=== PATIENT | male | born 1940 | race Hispanic/Latino ===

== ENCOUNTER 2017-11-18 12:02 | Inpatient (IN) | payer MEDICARE, OTHER ==
[2017-11-18 12:18] VITALS: BMI 34.0
--- NOTE | 2017-11-18 12:20 | ED PDOC ---
Arrival/HPI - General Time Seen by Provider: 11/18/17 12:15 Historian: Patient - History of Present Illness Narrative History of Present Illness (Text): 11/18/17 12:15 77yo male with Past medical history significant for hypertension, NIDDM, COPD, biba from his PMD's office for one month history of diarrhea, brownish productive cough, JAY and generalized weakness. States he was treated for Pneumonia and then he started having diarrhea s/p. JAY started recently. One episode of diarrhea today. Denies fever, chills, abdominal pain, chest pain, palpitation, diaphoresis, orthopnea, LE edema, calf pain, any other [id number]. Notes the he was told a week ago after chest xray that he have CHF. Past Medical History - Provider Review Nursing Documentation Reviewed: Yes - Pulmonary Hx Respiratory Disorders: (REMAINS CONGESTED,PNEUMONIA) - HEENT Hx HEENT Disorder: (READING,TONSILLECTOMY) - Musculoskeletal/Rheumatological Hx Falls: No - Psychiatric Hx Depression: No Hx Emotional Abuse: No Hx Physical Abuse: No Hx Substance Use: No - Anesthesia Hx Anesthesia: Yes - Suicidal Assessment Feels Threatened In Home Enviroment: No Family/Social History - Physician Review Nursing Documentation Reviewed: Yes Family/Social History: Unknown Family HX Smoking Status: Former Smoker Hx Alcohol Use: No Hx Substance Use: No Hx Substance Use Treatment: No Allergies/Home Meds Allergies/Adverse Reactions: Allergies atorvastatin Allergy (Verified 11/18/17 12:24) RASH Penicillins Allergy (Verified 11/18/17 12:24) PAIN procaine Allergy (Verified 11/18/17 12:24) RASH propoxyphene Allergy (Verified 11/18/17 12:24) RASH darvon Allergy (Severe, Uncoded 06/30/12 11:20) PAIN palpitations novacaine Allergy (Severe, Uncoded 06/30/12 11:18) PAIN palpitations Home Medications: Home Meds Medication Instructions Recorded Confirmed Aspirin 81 mg PO DAILY 06/30/12 11/18/17 Bethanechol Chloride [Bethanechol] 25 mg PO BID 06/30/12 11/18/17 Carvedilol [Coreg] 12.5 mg PO BID 06/30/12 11/18/17 Doxercalciferol [Hectorol] 2.5 mcg PO DAILY 06/30/12 11/18/17 Eplerenone [Inspra] 25 mg PO DAILY 06/30/12 11/18/17 Ezetimibe [Zetia] 10 mg PO DAILY 06/30/12 11/18/17 Finasteride 5 mg PO DAILY 06/30/12 11/18/17 Furosemide 20 mg PO BID 06/30/12 11/18/17 Glimepiride 2 mg PO BID 06/30/12 11/18/17 Nisoldipine [Sular] 25.5 mg PO DAILY 06/30/12 11/18/17 Sildenafil Citrate [Viagra] 100 mg PO PRN PRN 06/30/12 11/18/17 Tamsulosin [Flomax] 0.4 mg PO BID 06/30/12 11/18/17 Acarbose [Precose] 50 mg PO TID 11/18/17 11/18/17 Chlorthalidone 0.5 tab PO MWF 11/18/17 11/18/17 Colchicine 0.6 PO DAILY PRN 11/18/17 Ergocalciferol (Vitamin D2) PO MON 11/18/17 [Vitamin D2] Icosapent Ethyl [Vascepa] 1 gm PO BID 11/18/17 11/18/17 Irbesartan [Avapro] 300 mg PO MWF 11/18/17 11/18/17 Linagliptin [Tradjenta] 5 mg PO DAILY 11/18/17 11/18/17 Omeprazole 40 DAILY 11/18/17 Repaglinide [Prandin] 0.5 mg PO DAILY 11/18/17 11/18/17 Uloric 80 PRN PRN 11/18/17 Review of Systems - Physician Review All systems were reviewed & negative as marked: Yes - Review of Systems Constitutional: Fatigue Eyes: Normal ENT: Normal Respiratory: Cough, Sputum Cardiovascular: Normal Gastrointestinal: Diarrhea. absent: Abdominal Pain, Constipation, Nausea, Vomiting, Hematochezia, Hematemesis Genitourinary Male: Normal Musculoskeletal: Normal Skin: Normal Neurological: Normal Endocrine: Normal Hemo/Lymphatic: Normal Psychiatric: Normal Physical Exam Vital Signs Reviewed: Yes Vital Signs Temp Pulse Resp BP Pulse Ox 11/18/17 13:58 110 H 18 139/64 96 11/18/17 13:48 114 H 139/64 11/18/17 12:17 98.0 F 98 H 18 142/90 96 Temperature: Afebrile Blood Pressure: Normal Pulse: Regular Respiratory Rate: Normal Appearance: Positive for: Well-Appearing, Non-Toxic, Comfortable, Other ( [place] obese) Pain Distress: None Mental Status: Positive for: Alert and Oriented X 3 - Systems Exam Head: Present: Atraumatic, Normocephalic Pupils: Present: PERRL Extroacular Muscles: Present: EOMI Conjunctiva: Present: Normal Mouth: Present: Moist Mucous Membranes Neck: Present: Normal Range of Motion Respiratory/Chest: Present: Clear to Auscultation, Good Air Exchange, Rhonchi ( Scattered). No: Respiratory Distress, Accessory Muscle Use, Wheezes, Decreased Breath Sounds, Rales, Retracting Cardiovascular: Present: Regular Rate and Rhythm, Normal S1, S2. No: Murmurs Abdomen: Present: Distention (Distention secondary to body habitus), Normal Bowel Sounds. No: Tenderness, Peritoneal Signs, Rebound, Guarding, McBurney's Point Tender, Rovsing's Sign Present Back: Present: Normal Inspection Upper Extremity: Present: Normal Inspection. No: Cyanosis, Edema Lower Extremity: Present: Normal Inspection. No: Edema Neurological: Present: GCS=15, CN II-XII Intact, Speech Normal Skin: Present: Warm, Dry, Normal Color. No: Rashes Psychiatric: Present: Alert, Oriented x 3, Normal Insight, Normal Concentration Medical Decision Making ED Course and Treatment: 11/18/17 18:22 Pt presented for stated history. He was tachy, but not hypoxic. He was not in respiratory distress. Small leukocytosis was noted. Hypokalemia (3.0) and BNP >8000 was noted. Potassium was repleted. Afib with RVR. Couldn't find old EKG to compare. PT was given 5mg of lopressor. CXR RML infiltrate/PNE. Pt was on oral antibiotic and failed outpt therapy. LEvaquin was started for Pneumonia C. Diff toxin ordered and pending. Case was DW Dr. Petty and she accepted pt into her service. - Lab Interpretations Lab Results: 11/18/17 12:49 11/18/17 12:49 Lab Results 11/18/17 12:49: Sodium 138, Chloride 103, Potassium 3.0 L, Carbon Dioxide 27, Anion Gap 11, BUN 20, Creatinine 1.4, Est GFR ( Amer) 60, Est GFR (Non- Af Amer) 49, Random Glucose 188 H, Calcium 8.5, Total Bilirubin 0.5, AST 18, ALT 27, Alkaline Phosphatase 100, Lactate Dehydrogenase 469, Total Creatine Kinase 130, Troponin I 0.04, NT-Pro-B Natriuret Pep 8660 H, Total Protein 6.1, Albumin 3.1, Globulin 3.0, Albumin/Globulin Ratio 1.0 L 11/18/17 12:49: pO2 42, VBG pH 7.38, VBG pCO2 46.0, VBG HCO3 27.2, VBG Total CO2 28.6 H, VBG O2 Sat (Calc) 79.1 H, VBG Base Excess 1.5, VBG Potassium 2.9 L, Sodium 138.0, Chloride 105.0, Glucose 193 H, Lactate 1.3, FiO2 21.0, Venous Blood Potassium 2.9 L 11/18/17 12:49: PT 14.0 H, INR 1.27 H, APTT 29.9 11/18/17 12:49: WBC 11.7 H, RBC 3.55, Hgb 10.2 L, Hct 29.4 L, MCV 82.8, MCH 28.7 , MCHC 34.7, RDW 13.5, Plt Count 308, MPV 10.6, Gran % 82.4 H, Lymph % (Auto) 7.5 L, Mower % (Auto) 8.4 H, Eos % (Auto) 1.6, Baso % (Auto) 0.1, Gran # 9.63 H, Lymph # 0.9 L, Mower # 1.0 H, Eos # 0.2, Baso # 0.01 - RAD Interpretation Radiology Orders: 11/18/17 12:40 CHEST PORTABLE [RAD] Stat - Medication Orders Current Medication Orders: Acetaminophen (Tylenol 325mg Tab) 650 mg PO Q6H PRN PRN Reason: Fever >100.4 F Albuterol/Ipratropium (Duoneb 3 Mg/0.5 Mg (3 Ml) Ud) 3 ml IH Q2H PRN PRN Reason: Shortness of Breath Albuterol/Ipratropium (Duoneb 3 Mg/0.5 Mg (3 Ml) Ud) 3 ml IH [id number] [facility] Aspirin (Ecotrin) 81 mg PO DAILY [facility] Bethanechol Chloride (Urecholine) 25 mg PO TID [facility] Last Admin: 11/18/17 18:15 Dose: 25 mg Carvedilol (Coreg) 12.5 mg PO BID [facility] Doxercalciferol (Hectorol) 2.5 mcg PO DAILY [facility] Finasteride (Proscar) 5 mg PO DAILY [facility] Glimepiride (Amaryl) 2 mg PO BID [facility] Doxycycline Hyclate 100 mg/ (Sodium Chloride) 100 mls @ 100 mls/hr IVPB Q12 [facility] PRN Reason: Protocol Aztreonam (Azactam 1 Gm) 100 mls @ 100 mls/hr IV Q12 [facility] PRN Reason: Protocol Stop: 11/27/17 22:01 Insulin Human Regular (Humulin R Med) 0 units SC ACHS [facility] PRN Reason: Protocol Ondansetron HCl (Zofran Inj) 4 mg IVP Q6H PRN PRN Reason: Nausea/Vomiting Pantoprazole Sodium (Protonix Ec Tab) 40 mg PO 0630 [facility] Tamsulosin HCl (Flomax) 0.4 mg PO BID [facility] Valsartan (Diovan) 320 mg PO DAILY [facility] Vancomycin HCl (Vancocin 25 Mg/Ml (Oral Use)) 250 mg PO QID [facility] PRN Reason: Protocol Stop: 12/02/17 22:01 Discontinued Medications Albuterol/Ipratropium (Duoneb 3 Mg/0.5 Mg (3 Ml) Ud) 3 ml IH STAT STA Stop: 11/18/17 13:29 Last Admin: 11/18/17 13:48 Dose: 3 ml Levofloxacin/Dextrose (Levaquin 500mg) 500 mg in 100 mls @ 100 mls/hr IVPB STAT [facility] PRN Reason: Protocol Stop: 11/18/17 14:04 Last Admin: 11/18/17 13:34 Dose: 100 mls/hr eMAR Start Stop Document 11/18/17 13:34 HI (Rec: 11/18/17 13:34 HI [id number]) Intravenous Solution Start Date 11/18/17 Start Time 13:34 Potassium Chloride (Potassium Chloride 20 Meq/100 Ml) 20 meq in 100 mls @ 50 mls/hr IVPB Q2H STA Stop: 11/18/17 15:13 Last Admin: 11/18/17 13:34 Dose: 50 mls/hr eMAR Start Stop Document 11/18/17 13:34 HI (Rec: 11/18/17 13:34 [id number]) Intravenous Solution Start Date 11/18/17 Start Time 13:34 Metoprolol Tartrate (Lopressor) 5 mg IVP STAT STA Stop: 11/18/17 13:29 Last Admin: 11/18/17 13:48 Dose: 5 mg IVP Administration Document 11/18/17 13:48 HI (Rec: 11/18/17 13:48 [id number]) Charges for Administration # of IVP Administrations 1 MAR Pulse and Blood Pressure Document 11/18/17 13:48 HI (Rec: 11/18/17 13:48 [id number]) Pulse Pulse Rate (60-90) 114 Blood Pressure Blood Pressure (100/60-150/90) 139/64 Disposition/Present on Arrival - Present on Arrival Any Indicators Present on Arrival: No History of DVT/PE: No History of Uncontrolled Diabetes: No Urinary Catheter: No History of Decub. Ulcer: No History Surgical Site Infection Following: None - Disposition Have Diagnosis and Disposition been Completed?: Yes Diagnosis: Pneumonia, Afib, Hypokalemia, CHF (congestive heart failure) Disposition: HOSPITALIZED Disposition Time: 17:00 Patient Problems: Current Active Problems Problem Status Onset Afib Acute CHF (congestive heart failure) Acute Hypokalemia Acute Pneumonia Acute Condition: FAIR
[2017-11-18 13:02] LABS: VENOUS BLOOD GAS BASE EXCESS 1.5 mmol/L (0.0-2.0); VENOUS BLOOD PH 7.38 (7.32-7.43)
[2017-11-18] MEDS ORDERED: levoFLOXacin 500 mg in D5W 500 MG/100 ML BAG IVPB STA (13:05)
[2017-11-18 13:13] LABS: BILIRUBIN,TOTAL 0.5 mg/dL (0.2-1.3); CALCIUM 8.5 mg/dL (8.4-10.5); TOTAL PROTEIN 6.1 g/dL (5.8-8.3)
[2017-11-18 13:14] LABS: BASO # 0.01 K/mm3 (0.0-2.0); BASO % 0.1 % (0.0-3.0); EOS # 0.2 (0.0-0.7); EOS % 1.6 % (1.5-5.0); GRAN # 9.63 (1.4-6.5); GRAN % 82.4 % (50.0-68.0); HEMATOCRIT 29.4 % (42.0-52.0); LYMPH # 0.9 (1.2-3.4); LYMPH % 7.5 % (22.0-35.0); MEAN CELL VOLUME 82.8 fl (80.0-105.0); MEAN CORPUSCULAR HEMOGLOBIN 28.7 pg (25.0-35.0); MEAN CORPUSCULAR HGB CONC 34.7 g/dl (31.0-37.0); MEAN PLATELET VOLUME 10.6 fl (7.0-11.0); MONO % 8.4 % (1.0-6.0); RED CELL DISTRIBUTION WIDTH 13.5 % (11.5-14.5); WHITE BLOOD COUNT 11.7 10^3/ul (4.5-11.0)
[2017-11-18 13:26] LABS: TROPONIN I 0.04 ng/mL
[2017-11-18 13:27] LABS: INR 1.27 (0.93-1.08); PARTIAL THROMBOPLASTIN TIME 29.9 Seconds (25.1-36.5)
[2017-11-18] MEDS ORDERED: Albuterol-Ipratrop 3 mg / 0.5 (3 ml) UD IH STA (13:28)
[2017-11-18] MEDS ORDERED: Metoprolol 1 mg/ml Inj IVP STA (13:28)
--- NOTE | 2017-11-18 14:30 | RAD ---
HISTORY: cough COMPARISON: Chest x-ray performed 07/09/12 TECHNIQUE: Chest, one view. FINDINGS: LUNGS: Extensive patchy opacities throughout the right peri thorax with sparing of the right lung apex. Appearance concerning for pneumonia. Recommend follow-up upon completion of treatment of acute symptoms in order to ensure complete resolution and exclude possibility of underlying neoplasm. Please note that chest x-ray has limited sensitivity for the detection of pulmonary masses. PLEURA: No significant pleural effusion identified. No definite pneumothorax . CARDIOVASCULAR: Partially obscured right heart border. Heart size appears top normal. OSSEOUS STRUCTURES: Degenerative changes. VISUALIZED UPPER ABDOMEN: Unremarkable. OTHER FINDINGS: None. IMPRESSION: Extensive patchy opacities throughout the right peri thorax with sparing of the right lung apex. Appearance concerning for pneumonia. Recommend follow-up upon completion of treatment of acute symptoms in order to ensure complete resolution and exclude possibility of underlying neoplasm.
[2017-11-18] MEDS ORDERED: Non Formulary Medication (Aspirin [Aspirin] 81 MG) PO SCH (17:30)
[2017-11-18] MEDS ORDERED: Albuterol-Ipratrop 3 mg / 0.5 (3 ml) UD IH PRN (17:30)
[2017-11-18] MEDS ORDERED: DOXERCALCIFEROL 2.5 MCG PO SCH (17:30)
[2017-11-18] MEDS ORDERED: Non Formulary Medication (Valsartan [Diovan] 320 MG) PO SCH (17:30)
[2017-11-18] MEDS ORDERED: FINASTERIDE 5 MG PO SCH (17:30)
[2017-11-18] MEDS ORDERED: Aztreonam 1 Gm in NS 100mL 100 ML IVPB SCH (17:45)
[2017-11-18] MEDS ORDERED: GLIMEPIRIDE 2 MG PO SCH (18:00)
[2017-11-18] MEDS ORDERED: BETHANECHOL CHLORIDE 25 MG PO SCH (18:00)
[2017-11-18 19:23] LABS: URINE BILIRUBIN NEGATIVE (NEGATIVE); URINE BLOOD NEGATIVE (NEGATIVE); URINE GLUCOSE (UA) NEGATIVE (NEGATIVE); URINE KETONE NEGATIVE (NEGATIVE); URINE LEUKOCYTE ESTERASE NEGATIVE Leu/uL (NEGATIVE); URINE PROTEIN TRACE mg/dL (<30 mg/dL); URINE UROBILINOGEN 0.2 E.U./dL (<1 E.U./dL)
[2017-11-18 19:26] LABS: URINE APPEARANCE CLEAR (CLEAR); URINE COLOR YELLOW (YELLOW)
[2017-11-18 19:28] LABS: URINE EPITHELIAL CELLS 0 - 2 /hpf (0-5); URINE RBC 0 - 2 /hpf (0-2); URINE WBC 0 - 2 /hpf (0-6)
[2017-11-18] MEDS: Albuterol-Ipratrop 3 mg / 0.5 (3 ml) UD IH SCH (19:52)
[2017-11-18] MEDS: Aztreonam 1 Gm in NS 100mL 100 ML IV SCH (21:02)
[2017-11-18] MEDS: Vancomycin 25 MG/ML PO SCH (22:05)
[2017-11-18] MEDS: Insulin Reg-MEDIUM-Coverage SC SCH (22:51)
[2017-11-19] MEDS: Albuterol-Ipratrop 3 mg / 0.5 (3 ml) UD IH SCH ×4 (01:54→20:00)
[2017-11-19] MEDS: Pantoprazole 40 mg EC Tab PO SCH (05:38)
[2017-11-19] MEDS: Insulin Reg-MEDIUM-Coverage SC SCH ×3 (07:54→18:00)
[2017-11-19 08:17] LABS: MEAN CELL VOLUME 83.6 fl (80.0-105.0); MEAN CORPUSCULAR HEMOGLOBIN 27.4 pg (25.0-35.0); MEAN CORPUSCULAR HGB CONC 32.8 g/dl (31.0-37.0); MEAN PLATELET VOLUME 10.2 fl (7.0-11.0); RED CELL DISTRIBUTION WIDTH 13.8 % (11.5-14.5); WHITE BLOOD COUNT 10.7 10^3/ul (4.5-11.0)
[2017-11-19 08:26] LABS: ALB/GLOB RATIO 1.1 (1.1-1.8); BILIRUBIN,TOTAL 0.4 mg/dL (0.2-1.3); CALCIUM 8.8 mg/dL (8.4-10.5); POTASSIUM 3.5 mmol/L (3.6-5.0)
[2017-11-19] MEDS ORDERED: Potassium Chloride 20 mEq ER Tab PO ONE (08:54)
[2017-11-19] MEDS: Aztreonam 1 Gm in NS 100mL 100 ML IV SCH ×2 (10:09→22:03)
[2017-11-19] MEDS: Vancomycin 25 MG/ML PO SCH ×4 (10:15→22:04)
[2017-11-19] MEDS: Potassium Chloride 20 mEq ER Tab PO SCH ×2 (10:15→18:05)
--- NOTE | 2017-11-19 10:52 | HP ---
HISTORY OF PRESENT ILLNESS: Patient is 77 years old came to the emergency room because of history of intermittent diarrhea secondary to the antibiotic that was given because he has been coughing for almost a week. Patient states he was treated for pneumonia, and he was given antibiotic unknown to him. He started to have diarrhea that is going on intermittently for almost a month. He complained of having generalized weakness, complained of brownish productive cough, complained of diarrhea with no blood in the stool, complained of generalized weakness. Denies any abdominal pain. No chest pain. No palpitations but have shortness of breath. PAST MEDICAL HISTORY: Significant for: 1. Hypertension. 2. History of COPD. 3. Insulin-dependent diabetes. 4. History of *------*. 5. Mild renal insufficiency. 6. History of melanoma. 7. History of basal cell carcinoma. PAST SURGICAL HISTORY: Significant for skin graft 43 years ago and multiple skin cancer excisions. ALLERGIES: HE IS ALLERGIC TO PENICILLIN, ATORVASTATIN, PROCAINE, DARVON, AND NOVOCAIN. SOCIAL HISTORY: He is an ex-smoker, quit 11 years ago. MEDICATIONS AT HOME: He is on Coreg 12.5 twice a day, Flomax 0.4 b.i.d., Viagra as needed, Sular *------* daily, glimepiride 2 mg twice a day, Lasix 20 mg twice a day, finasteride 5 mg daily, Zetia 10 mg daily, Inspra 25 mg daily, Hectorol and bethanechol. REVIEW OF SYSTEMS: Significant for diarrhea, cough, congestion, and shortness of breath. PHYSICAL EXAMINATION: GENERAL: He is awake, alert, oriented, and communicative. VITAL SIGNS: He is afebrile, pulse 98, respirations 18, and blood pressure 142/90. LUNGS: Bilateral occasional expiratory rhonchi. HEART: S1, S2 audible. ABDOMEN: Soft, nontender, no rebound, obese. No hepatosplenomegaly. NEUROLOGIC: The patient is awake, alert, oriented, able to communicate. LABORATORY DATA: WBC 11.7, hemoglobin 10.2, hematocrit 29.4, platelets of 308. PT 14.0, INR 1.27. Chemistry; sodium 138, potassium 3.0, chloride 103, CO2 of 27, BUN 20, creatinine 1.4, blood sugar of 212, BNP 1660. X-ray of chest shows multifocal extensive patchy opacity throughout the right hemithorax with sparing of right lung apex. ASSESSMENT AND PLAN: 1. Community-acquired pneumonia. 2. Failed outpatient treatment. 3. Non-insulin dependent diabetes. 4. Hypertension. 5. Hyperlipidemia. 6. History of chronic obstructive pulmonary disease. 7. History of cancer of prostate. PLAN: We will start him on nebulizer treatments, start him on doxycycline 100 [address]d., given him Dr. Emeka *------* for consult and monitor his blood sugar. We will reevaluate patient in a.m. Joselito Petty MD
--- NOTE | 2017-11-19 11:33 | CARD ---
APPROVED REPORT EKG Measurement Heart [id number] <Conclusion> Atrial fibrillation with rapid ventricular response Left axis deviation/LAHB IVCD PRWP NSSTW changes
--- NOTE | 2017-11-19 11:37 | CON ---
DATE: 11/19/2017 INDICATION: Shortness of breath, cough, sputum production, pneumonia. HISTORY OF PRESENT ILLNESS: This is a 77-year-old man known to me, admitted yesterday through the emergency room when he presented with shortness of breath, cough, sputum production, generalized weakness. He had been treated on outpatient basis for possible pneumonia. He was given antibiotics. He developed diarrhea. He became weaker. He came to the emergency room and was admitted. He was found to have a right lower lobe pneumonia. He was admitted to room 565. He is sánchez cultured. He is started on antibiotics. This morning, he feels better. There is less shortness of breath. He still has cough, and he still feels weak. There was no chest pain, orthopnea, PND, syncope, dizziness, vertigo, palpitations, claudication, abdominal pain, nausea, vomiting, diarrhea, constipation, melena. PAST MEDICAL HISTORY: Complex. He has had a prior remote pneumonia. He has diabetes, hypertension, COPD. He is a former smoker. Hyperlipidemia, BPH, chronic kidney disease, and gout. There is no history of rheumatic fever, myocardial infarction, angina, arrhythmia, stroke, TIA. MEDICATIONS AT THE TIME OF ADMISSION: Includes aspirin, bethanechol, Coreg, Hectorol, Inspra, Zetia, finasteride, Lasix, glimepiride, Sular, Flomax, Precose, chlorthalidone, Avapro, Tradjenta, omeprazole, Prandin, Uloric. ALLERGIES: HE NOTES ALLERGIES TO SEVERAL MEDICATIONS INCLUDING LIPITOR, PENICILLIN, PROCAINE, PROPOXYPHENE, NOVOCAINE. SOCIAL HISTORY: He lives at home. He is ambulatory, but limited. He is a former smoker. He does not drink alcohol significantly. FAMILY HISTORY: Noncontributory. REVIEW OF SYSTEMS: A 10-point review of systems is otherwise unremarkable except as noted above. PHYSICAL EXAMINATION: GENERAL: He is a well-developed male, lying in bed, on 5R, in no acute distress. VITAL SIGNS: Notable for pulse of 80. He is afebrile. Blood pressure elevated at 188/82, respirations 18-22, O2 sat 94-96% on nasal cannula and room air. HEENT: Reveals no neck vein distention, thyromegaly, or carotid bruits. Mucous membranes moist. Conjunctivae pink. NECK: Supple. LUNGS: Lung north, rhonchi mostly on the right side. No wheezing. HEART: Reveals normal first and second heart sounds. There is a soft systolic murmur along the left sternal border. ABDOMEN: Soft. Bowel sounds present. No mass, organomegaly, tenderness, rebound, guarding, CVA tenderness, or palpable abdominal aortic aneurysm. EXTREMITIES: Reveal no cyanosis, clubbing, or edema. NEUROLOGIC: He is awake, alert, and oriented. PSYCHIATRIC: Normalized mood and affect. SKIN: Warm and dry. No rash or cellulitis. LABORATORY AND IMAGING: A chest x-ray revealed extensive patchy opacities throughout the right hemithorax with sparing of the right lung apex. Appearance concerning for pneumonia. EKG demonstrates atrial fibrillation with left anterior hemiblock, intraventricular conduction delay, poor R-wave progression, nonspecific ST-wave changes. White count 10,700, hemoglobin 9.5, hematocrit 29, platelet count 296,000. PT 14, INR 1.27, PTT 29.9. Blood gas as noted. Electrolytes: BUN, creatinine, blood sugars noted. Creatinine 1.4, potassium 3.5. LFTs unremarkable. CK 130, troponin 0.04. BNP 8660. Urinalysis is noted. IMPRESSION: Mason Davila is a 77-year-old man admitted with 1-month history of symptoms, found to have a right lung pneumonia with shortness of breath, cough, sputum production, weakness, and diarrhea after a course of antibiotics. He is also in atrial fibrillation which may be a new rhythm. At this time, I agree with current plans. He has been cultured. He is getting antibiotics. There was an ID consultation pending. I will review his old records. We will continue his usual medications. Given the presence of atrial fibrillation, he should be considered for anticoagulation. I will begin with Eliquis 5 mg b.i.d. We will check stool for occult blood. I will review his old records. We will get an echocardiogram. We will check thyroid functions. We will continue Coreg 12.5 mg b.i.d. for rate control and hypertension. Other cardiac medications include aspirin, Diovan, Lasix, potassium chloride, and lisinopril, and Zetia will be continued for an hour. We will monitor I's and O's, check stool for occult blood. I will follow along with you. I will make additional recommendations based on his clinical course. Mele Hart MD GM
--- NOTE | 2017-11-19 12:11 | CARD ---
APPROVED REPORT EKG Measurement Heart [id number] <Conclusion> Normal sinus rhythm, new c/w ECG 11/18/17 which showed AF PRWP Left anterior fascicular block Prolonged QT
--- NOTE | 2017-11-19 18:56 | PN ---
DATE: 11/19/2017 SUBJECTIVE: The patient is in bed, no acute distress, nontoxic. PHYSICAL EXAMINATION: VITAL SIGNS: On exam, temperature is 98, blood pressure is 180/80, respiratory rate of 22. HEENT: Unremarkable. NECK: Supple. LUNGS: Have decreased breath sounds. HEART: Normal S1 and S2. ABDOMEN: Soft and nontender. LABORATORY EXAMINATION: Reveals a white count is down to 10,000, hemoglobin of 9, platelets of 296. BUN of 21, creatinine of 1.4, and blood cultures are no growth. ASSESSMENT AND PLAN: This is a 77-year-old male with past medical history significant for prostate cancer, renal disease, diabetes, hypertension with a systemic inflammatory response syndrome, awaiting for final culture results. Currently, the patient is on Azactam, doxycycline, and vancomycin p.o. Pending further workup. We will follow closely with you. Reji Jane MD
--- NOTE | 2017-11-19 21:45 | CP.PCM.PN ---
Subjective - Date & Time of Evaluation Date of Evaluation: 11/19/17 Time of Evaluation: 09:20 - Subjective Subjective: Patient has very poor veins,needs iv access Objective - Vital Signs/Intake and Output Vital Signs (last 24 hours): Temp Pulse Resp BP Pulse Ox 98.3 F 78 20 140/80 90 L 11/19/17 16:00 11/19/17 18:04 11/19/17 16:00 11/19/17 18:04 11/19/17 16:00 Intake and Output: 11/19/17 11/20/17 18:59 06:59 Intake Total 960 Output Total 600 Balance 360 - Medications Medications: Current Medications Acetaminophen (Tylenol 325mg Tab) 650 mg PO Q6H PRN PRN Reason: Fever >100.4 F Albuterol/Ipratropium (Duoneb 3 Mg/0.5 Mg (3 Ml) Ud) 3 ml IH Q2H PRN PRN Reason: Shortness of Breath Albuterol/Ipratropium (Duoneb 3 Mg/0.5 Mg (3 Ml) Ud) 3 ml IH [id number] [facility] Last Admin: 11/19/17 13:17 Dose: 3 ml Amlodipine Besylate (Norvasc) 10 mg PO STAT [facility] Last Admin: 11/19/17 14:32 Dose: 10 mg Amlodipine Besylate (Norvasc) 10 mg PO DAILY [facility] Apixaban (Eliquis) 5 mg PO BID [facility] PRN Reason: Protocol Last Admin: 11/19/17 18:05 Dose: 5 mg Aspirin (Ecotrin) 81 mg PO DAILY [facility] Last Admin: 11/19/17 10:11 Dose: Not Given Aspirin (Aspirin Chewable) 81 mg PO DAILY [facility] Last Admin: 11/19/17 10:07 Dose: 81 mg Bethanechol Chloride (Urecholine) 25 mg PO TID [facility] Last Admin: 11/19/17 18:05 Dose: 25 mg Carvedilol (Coreg) 12.5 mg PO BID [facility] Last Admin: 11/19/17 18:04 Dose: 12.5 mg Doxercalciferol (Hectorol) 2.5 mcg PO DAILY [facility] Last Admin: 11/19/17 10:29 Dose: 2.5 mcg Doxycycline Hyclate (Doryx) 100 mg PO Q12 [facility] Ezetimibe (Zetia) 10 mg PO DAILY [facility] Last Admin: 11/19/17 10:08 Dose: 10 mg Finasteride (Proscar) 5 mg PO DAILY [facility] Last Admin: 11/19/17 10:15 Dose: 5 mg Furosemide (Lasix) 40 mg PO DAILY [facility] Last Admin: 11/19/17 10:15 Dose: 40 mg Glimepiride (Amaryl) 2 mg PO BID [facility] Last Admin: 11/19/17 18:04 Dose: 2 mg Aztreonam (Azactam 1 Gm) 100 mls @ 100 mls/hr IV Q12 [facility] PRN Reason: Protocol Stop: 11/27/17 22:01 Last Admin: 11/19/17 10:09 Dose: 100 mls/hr Insulin Human Regular (Humulin R Med) 0 units SC ACHS [facility] PRN Reason: Protocol Last Admin: 11/19/17 18:00 Dose: Not Given Ondansetron HCl (Zofran Inj) 4 mg IVP Q6H PRN PRN Reason: Nausea/Vomiting Pantoprazole Sodium (Protonix Ec Tab) 40 mg PO 0630 [facility] Last Admin: 11/19/17 05:38 Dose: 40 mg Potassium Chloride (K-Dur 20 Meq Er Tab) 20 meq PO BID [facility] Last Admin: 11/19/17 18:05 Dose: 20 meq Tamsulosin HCl (Flomax) 0.4 mg PO BID [facility] Last Admin: 11/19/17 18:05 Dose: 0.4 mg Valsartan (Diovan) 320 mg PO DAILY [facility] Last Admin: 11/19/17 10:10 Dose: 320 mg Vancomycin HCl (Vancocin 25 Mg/Ml (Oral Use)) 250 mg PO QID [facility] PRN Reason: Protocol Stop: 12/02/17 22:01 Last Admin: 11/19/17 18:00 Dose: 250 mg - Labs Labs: 11/19/17 07:45 11/19/17 07:45 PT 14.0 SECONDS (9.4-12.5) H 11/18/17 12:49 INR 1.27 (0.93-1.08) H 11/18/17 12:49 APTT 29.9 Seconds (25.1-36.5) 11/18/17 12:49 - Constitutional Appears: No Acute Distress Assessment and Plan - Assessment and Plan (Free Text) Assessment: Poor venous access Plan: Hep lock inserted in the L hand. #24 angiocath used.
--- NOTE | 2017-11-19 22:42 | PN ---
DATE: SUBJECTIVE: The patient is 77-year-old, seen and examined, doing well. He states he feels lot better. No nausea, vomiting or diarrhea. Cough has improved. PHYSICAL EXAMINATION: VITAL SIGNS: The patient is afebrile, pulse 75, respiration 20, blood pressure 127/48. LUNGS: Bilateral good airflow. No rhonchi or crackle. HEART: S1, S2, audible. ABDOMEN: Soft, obese, nontender. No rebound or guarding. NEUROLOGIC: The patient is awake, alert, oriented, communicative. LABORATORY DATA: WBC is 10.7, hemoglobin 9.5, hematocrit 29, platelets 296. Chemistry: Sodium 140, potassium 3.5, chloride 105, CO2 27, BUN 21, creatinine 1.4, blood sugar of 145. Blood cultures are negative. Stool for C. diff negative. ASSESSMENT: 1. Multifocal community-acquired pneumonia, failed outpatient treatment. 2. Morbid obesity. 3. Diarrhea induced by erythromycin, negative for Clostridium difficile. 4. History of chronic obstructive pulmonary disease. 5. Insulin-dependent diabetes. 6. Renal insufficiency. PLAN: Currently, the patient is on Azactam since he is ALLERGIC TO PENICILLIN and he is on doxycycline. Continue to monitor his blood sugar, out of bed to chair, followup echocardiogram. We will reevaluate the patient in a.m. Joselito Petty MD
[2017-11-20] MEDS: Albuterol-Ipratrop 3 mg / 0.5 (3 ml) UD IH SCH ×4 (01:20→21:26)
[2017-11-20 07:33] LABS: HEMATOCRIT 30.6 % (42.0-52.0); MEAN CELL VOLUME 83.8 fl (80.0-105.0); MEAN CORPUSCULAR HEMOGLOBIN 27.7 pg (25.0-35.0); MEAN PLATELET VOLUME 10.8 fl (7.0-11.0); RED CELL DISTRIBUTION WIDTH 13.9 % (11.5-14.5); WHITE BLOOD COUNT 12.4 10^3/ul (4.5-11.0)
[2017-11-20 07:43] LABS: BLOOD UREA NITROGEN 21 mg/dL (7-21); CALCIUM 8.6 mg/dL (8.4-10.5); CARBON DIOXIDE 25 mmol/L (21-33); CHLORIDE 105 mmol/L (98-107); GFR AFRICAN-AMERICAN > 60; GLUCOSE,RANDOM 166 mg/dL (70-110); POTASSIUM 3.6 mmol/L (3.6-5.0); SODIUM 139 mmol/L (132-148)
[2017-11-20 07:52] LABS: TROPONIN I 0.03 ng/mL
[2017-11-20] MEDS: Insulin Reg-MEDIUM-Coverage SC SCH ×4 (09:00→22:48)
[2017-11-20] MEDS: Aztreonam 1 Gm in NS 100mL 100 ML IV SCH ×2 (09:19→21:00)
[2017-11-20] MEDS: Potassium Chloride 20 mEq ER Tab PO SCH ×2 (09:23→17:28)
[2017-11-20] MEDS: Vancomycin 25 MG/ML PO SCH ×4 (09:25→21:00)
--- NOTE | 2017-11-20 11:44 | CARD ---
APPROVED REPORT EXAM: Two-dimensional and M-mode echocardiogram with Doppler and color Doppler. INDICATION Dyspnea 2D DIMENSIONS Left Atrium (2D)4.6 (1.6-4.0cm)IVSd1.5 (0.7-1.1cm) LVDd4.9 (3.9-5.9cm)LVOT Diameter2.3 (1.8-2.4cm) PWd1.4 (0.7-1.1cm)LVDs3.3 (2.5-4.0cm) FS (%) 32.6 %LVEF (%)60.6 (>50%) M-Mode DIMENSIONS Aortic Root3.80 (2.2-3.7cm)Aortic Cusp Exc.1.60 (1.5-2.0cm) Aortic Valve AoV Peak Ipogiqcx488.0cm/sAoV VTI48.2cmAO Peak GR.30mmHg LVOT Peak Hsgrworu647.0cm/sLVOT VTI27.00cmAO Mean GR.13mmHg DARWIN (VMAX)1.95zy6OYU (VTI)2.84cg9JE P 1/2 Jrme232rr Mitral Valve MV E Cazgnyda025.0cm/sMV A Rxbuvcna921.0cm/sE/A ratio1.0 TDI Lateral E' Peak V7.12cm/sMedial E' Peak V6.04cm/sE/Lateral E'17.6 E/Medial E'20.7 Pulmonary Valve PV Peak Rqwsbcyz68.3cm/sPV Peak Grad.3mmHg Tricuspid Valve TR Peak Nqykrwbt433ao/sRAP LTBKNODS52yhSkMW Peak Gr.59mmHg ZPPP11uhIx LEFT VENTRICLE The left ventricle is normal size. There is mild to moderate concentric left ventricular hypertrophy. The left ventricular function is normal. The left ventricular ejection fraction is within the normal range. There is normal LV segmental wall motion. RIGHT VENTRICLE The right ventricle is normal size. The right ventricular systolic function is normal. ATRIA The left atrium is moderately dilated. The right atrium is moderately dilated. The interatrial septum is intact with no evidence for an atrial septal defect. AORTIC VALVE The aortic valve is moderately calcified. There is mild aortic regurgitation. There is mild valvular aortic stenosis. MITRAL VALVE Mitral annular calcification is mild. Mitral regurgitation is trace. TRICUSPID VALVE The tricuspid valve is normal in structure. There is moderate tricuspid regurgitation. There is moderate pulmonary hypertension. PULMONIC VALVE The pulmonary valve is normal in structure. GREAT VESSELS The aortic root is normal in size. The IVC is normal in size and collapses >50% with inspiration. PERICARDIAL EFFUSION There is no pleural effusion. There is no pericardial effusion. <Conclusion> Biatrial enlargement. Mild to moderate concentric LVH. Normal LV systolic function. Mild and AI. Moderate TR.
--- NOTE | 2017-11-20 13:27 | PN ---
DATE: 11/20/2017 SUBJECTIVE: The patient is seen lying in bed on 5R. He is feeling somewhat better. His dyspnea is improved. His latest electrocardiogram reveals sinus rhythm. His current medications include Amaryl, aspirin, Azactam, carvedilol 12.5 mg b.i.d., Diovan 320 mg daily, doxycycline, DuoNeb inhaler, Ecotrin, Eliquis 5 mg b.i.d., Flomax, potassium, Lasix 40 mg daily, Norvasc 10 mg daily, Proscar, Protonix, oral vancomycin, Zetia 10 mg daily. OBJECTIVE: GENERAL: He is an elderly man who appears comfortable at rest. VITAL SIGNS: Blood pressure 142/82 with pulse of 86 and regular, respirations 16. He is afebrile. HEENT: No JVD. CHEST: Few scattered rhonchi are heard. HEART: PMI was normal position with a soft systolic murmur noted at the base as well as the lower left sternal border. ABDOMEN: Soft and nontender with normoactive bowel sounds. EXTREMITIES: Revealed no edema. DIAGNOSTIC DATA: Troponin is negative. Potassium 3.6, BUN and creatinine 21 and 1.3, white count 12.4, hemoglobin and hematocrit 10.1 and 30.6 with platelet count of 332,000. IMPRESSION: 1. Recent pneumonia, clinically improved. 2. Paroxysmal atrial fibrillation, currently on Eliquis. 3. Mild aortic stenosis. RECOMMENDATIONS: Current medications should continue for now. If he has no further evidence of atrial fibrillation, consideration could be given to discontinuation of Eliquis at some point in the future. We will continue to follow and make further recommendations as appropriate. Raphael Grey MD
[2017-11-20 17:14] VITALS: RESP 20
[2017-11-21] MEDS: Albuterol-Ipratrop 3 mg / 0.5 (3 ml) UD IH SCH ×4 (02:31→21:00)
--- NOTE | 2017-11-21 02:54 | PN ---
DATE: 11/20/2017 SUBJECTIVE: The patient is seen earlier this morning. No acute distress. Nontoxic. PHYSICAL EXAMINATION: VITAL SIGNS: Temperature is 98, blood pressure is 190/90, respiratory rate of 20, heart rate of 86. The patient is 94% saturation on exam. HEENT: Unremarkable. NECK: Supple. LUNGS: Have decreased breath sounds. HEART: Normal S1 and S2. ABDOMEN: Soft, nontender. LABORATORY DATA: There is a white count of 11,700, hemoglobin of 10, platelets of 308. BUN of 21, creatinine of 1.3. Procalcitonin is 0.15. Urinalysis is noted to be unremarkable. Microbiology reveals the blood cultures have no growth, urine cultures have no growth. C. diff antigen and toxin are negative. ASSESSMENT AND PLAN: A 77-year-old male with past medical history significant for prostate cancer, renal disease, diabetes with systemic inflammatory response syndrome and with negative blood cultures, negative urine cultures and a negative urinalysis and negative procalcitonin of 0.12. We will discontinue the aztreonam. The patient is on doxycycline p.o. and p.o. vancomycin will also be discontinued since the Clostridium difficile toxin and antigen are both negative. Highly unlikely to be pseudomembranous colitis. We will check on the urine for Legionella antigen. We will follow closely with you. Reji Jane MD
--- NOTE | 2017-11-21 07:59 | CP.PCM.PN ---
Subjective - Date & Time of Evaluation Date of Evaluation: 11/21/17 Time of Evaluation: 07:00 - Subjective Subjective: Stable on 5R. He feels better. No chest pain or SOB at rest. V/S noted. P = reg at 80 PE: Lungs: rhonchi Cor: S1S2, sys. murmur Abd.: soft Ext.: no edema Neuro.: alert I/O= 1180/400 recorded BC X2 NG at 48 hrs. Echo: Nl LV, Mod. LVH, Mild and AI, Mod. TR Objective - Vital Signs/Intake and Output Vital Signs (last 24 hours): Temp Pulse Resp BP Pulse Ox 97.6 F 86 20 191/93 H 94 L 11/20/17 17:13 11/20/17 17:26 11/20/17 17:13 11/20/17 17:26 11/20/17 17:13 Intake and Output: 11/21/17 11/21/17 06:59 18:59 Intake Total 820 Output Total 400 Balance 420 - Medications Medications: Current Medications Acetaminophen (Tylenol 325mg Tab) 650 mg PO Q6H PRN PRN Reason: Fever >100.4 F Albuterol/Ipratropium (Duoneb 3 Mg/0.5 Mg (3 Ml) Ud) 3 ml IH Q2H PRN PRN Reason: Shortness of Breath Albuterol/Ipratropium (Duoneb 3 Mg/0.5 Mg (3 Ml) Ud) 3 ml IH [id number] [facility] Last Admin: 11/21/17 07:24 Dose: 3 ml Amlodipine Besylate (Norvasc) 10 mg PO DAILY [facility] Last Admin: 11/20/17 09:23 Dose: 10 mg Apixaban (Eliquis) 5 mg PO BID [facility] PRN Reason: Protocol Last Admin: 11/20/17 17:27 Dose: 5 mg Aspirin (Aspirin Chewable) 81 mg PO DAILY [facility] Last Admin: 11/20/17 09:20 Dose: 81 mg Bethanechol Chloride (Urecholine) 25 mg PO TID [facility] Last Admin: 11/20/17 17:28 Dose: 25 mg Carvedilol (Coreg) 12.5 mg PO BID [facility] Last Admin: 11/20/17 17:26 Dose: 12.5 mg Doxercalciferol (Hectorol) 2.5 mcg PO DAILY [facility] Last Admin: 11/20/17 09:22 Dose: 2.5 mcg Doxycycline Hyclate (Doryx) 100 mg PO Q12 [facility] Last Admin: 11/20/17 21:00 Dose: 100 mg Ezetimibe (Zetia) 10 mg PO DAILY [facility] Last Admin: 11/20/17 09:25 Dose: 10 mg Finasteride (Proscar) 5 mg PO DAILY [facility] Last Admin: 11/20/17 09:24 Dose: 5 mg Furosemide (Lasix) 40 mg IVP DAILY [facility] Glimepiride (Amaryl) 2 mg PO BID [facility] Last Admin: 11/20/17 17:26 Dose: 2 mg Insulin Human Regular (Humulin R Med) 0 units SC ACHS [facility] PRN Reason: Protocol Last Admin: 11/20/17 22:48 Dose: Not Given Ondansetron HCl (Zofran Inj) 4 mg IVP Q6H PRN PRN Reason: Nausea/Vomiting Pantoprazole Sodium (Protonix Ec Tab) 40 mg PO 0630 [facility] Last Admin: 11/19/17 05:38 Dose: 40 mg Potassium Chloride (K-Dur 20 Meq Er Tab) 20 meq PO BID [facility] Last Admin: 11/20/17 17:28 Dose: 20 meq Tamsulosin HCl (Flomax) 0.4 mg PO BID [facility] Last Admin: 11/20/17 17:27 Dose: 0.4 mg Valsartan (Diovan) 320 mg PO DAILY [facility] Last Admin: 11/20/17 09:21 Dose: 320 mg - Labs Labs: 11/20/17 06:45 11/20/17 06:45 PT 14.0 SECONDS (9.4-12.5) H 11/18/17 12:49 INR 1.27 (0.93-1.08) H 11/18/17 12:49 APTT 29.9 Seconds (25.1-36.5) 11/18/17 12:49 Assessment and Plan - Assessment and Plan (Free Text) Assessment: SOB/Pneumonia Diarrhea PAF HBP Diabetes COPD/Former Smoker BPH CKD Gout Echo: Mild and AI, Mod. TR Plan: AB OOB/Ambulate as rudolph IV > PO Lasix F/U CXR Saturday Continue Eliquis for now.
--- NOTE | 2017-11-21 08:29 | PN ---
DATE: 11/20/2017 SUBJECTIVE: The patient is 77-year-old, seen and examined, sitting in chair, states he feels much better. Less shortness of breath. Cough is improving. No fever or chills. PHYSICAL EXAMINATION: VITAL SIGNS: The patient is afebrile, pulse 88, respirations 22, blood pressure 142/82. LUNGS: Bilateral few expiratory rhonchi. HEART: S1 and S2, audible. ABDOMEN: Soft, obese, nontender. No rebound. No guarding. NEUROLOGIC: He is awake, alert, and oriented, communicative. LABORATORY EXAMINATION: WBC is 12.4, hemoglobin 10, hematocrit 30, platelets of 332. Chemistry: Sodium 139, potassium 3.6, chloride 105, CO2 of 25, BUN 21, creatinine 1.3, blood sugar of 166. His blood culture and urine cultures are negative. Stool for C. diff is negative. He had echocardiogram done also that shows biatrial enlargement, [id number] concentric LVH, normal LV function, moderate TR. ASSESSMENT AND PLAN: 1. Multilobar pneumonia. 2. Failed outpatient treatment. 3. Congestive heart failure. 4. Active smoker. 5. Paroxysmal atrial fibrillation, on Eliquis. 6. Aortic stenosis. PLAN: Currently, the patient is on Azactam. We will continue Eliquis and he is on p.o. vancomycin. Continue him on doxycycline, and we will reevaluate the patient in a.m. Joselito Petty MD
[2017-11-21 09:18] LABS: HEMATOCRIT 29.2 % (42.0-52.0); MEAN CELL VOLUME 83.9 fl (80.0-105.0); MEAN CORPUSCULAR HEMOGLOBIN 27.3 pg (25.0-35.0); MEAN CORPUSCULAR HGB CONC 32.5 g/dl (31.0-37.0); MEAN PLATELET VOLUME 10.6 fl (7.0-11.0); RED CELL DISTRIBUTION WIDTH 13.9 % (11.5-14.5); WHITE BLOOD COUNT 11.5 10^3/ul (4.5-11.0)
[2017-11-21] MEDS: Potassium Chloride 10 mEq ER Tab PO SCH ×2 (10:31→17:57)
[2017-11-21] MEDS: Insulin Reg-MEDIUM-Coverage SC SCH ×4 (10:32→22:07)
--- NOTE | 2017-11-21 10:38 | CARD ---
APPROVED REPORT EKG Measurement Heart [id number] <Conclusion> Normal sinus rhythm Left anterior fascicular block PRWP IVCD Prolonged QTc No change
--- NOTE | 2017-11-21 18:36 | PN ---
SUBJECTIVE: Patient is 77 years old seen and examined, states feels better. No nausea, vomiting, no diarrhea. Eating and tolerating. Complaining of constipation. PHYSICAL EXAMINATION VITAL SIGNS: He is afebrile. Pulse 85, respirations 20, blood pressure 150/80. LUNGS: Bilateral fair airflow. Few expiratory rhonchi bilaterally. HEART: S1 and S2 audible. ABDOMEN: Soft, nontender, obese. No hepatosplenomegaly. NEUROLOGIC: He is awake, alert, oriented. Able to communicate. LABORATORY EXAM: WBC 11.5, hemoglobin 9.5, hematocrit 29.2, platelets of 292. Chemistry, blood sugar is 268. Blood culture and urine cultures are negative. Stool for C. difficile is negative. ASSESSMENT: 1. Multilobar pneumonia. 2. Diarrhea secondary to antibiotic. 3. History of chronic kidney disease. 4. History of cancer of prostate. 5. Paroxysmal atrial fibrillation. 6. Insulin-dependent diabetes. 7. Chronic obstructive pulmonary disease. 8. History of heavy smoking in the past. PLAN: Currently, patient is on Amaryl 2 mg twice a day, and I will increase it to 4 mg twice a day. Continue aspirin and carvedilol. We will continue on valsartan. He is on doxycycline currently and we will follow up this patient. Patient has been referred to TCU and if the bed is available, patient will be transferred to TCU. Joselito Petty MD
--- NOTE | 2017-11-21 19:54 | CON ---
DATE: LOCATION: The patient is in room 565. CHIEF COMPLAINT: Abdominal pain and diarrhea times several days. HISTORY OF PRESENT ILLNESS: This is a 77-year-old male with obesity, BMI of 34 with hypertension, diabetes, chronic obstructive lung disease, prostate cancer, renal insufficiency, history of right arm surgery, and tonsillectomy. HE IS ALLERGIC TO PENICILLIN, was admitted with a diagnosis of pneumonia. Infectious Disease consultation requested. The patient states that he had pneumonia which has been treated with Levaquin for a week and he developed diarrhea with it and weakness. He is denying any fevers at this time. He did have fevers at home. No chills. No chest pain. Mild abdominal cramps. PAST MEDICAL HISTORY: Significant for hypertension, diabetes mellitus, chronic obstructive lung disease, prostate cancer, renal insufficiency, tonsillectomy, and right arm surgery. PAST SURGICAL HISTORY: Significant for tonsillectomy and right arm surgery. ALLERGIES: INCLUDE PENICILLIN, QUESTIONABLE RASH. MEDICATIONS: Reviewed which include Avapro, , Prandin, Coreg, Flomax, Zetia, aspirin, and colchicine. PHYSICAL EXAMINATION: GENERAL: The patient is in bed. VITAL SIGNS: Temperature of 98, heart rate of 114, respiratory rate of 18, blood pressure is 140/ . HEENT: Unremarkable. NECK: Supple. LUNGS: Have decreased breath sounds. HEART: Normal S1 and S2. ABDOMEN: Soft and nontender. No organomegaly. No rebound, no guarding, no masses. LABORATORY EXAMINATION: Reveals a white count of 11,700, hemoglobin of 10, and platelets of 308. Coagulation is noted. Chemistry reveals a BUN of 20 and creatinine of 1.4. BNP is 8660. Glucose is 215. Microbiology reveals blood cultures, no growth. Chest x-ray, extensive infiltrate. ASSESSMENT AND PLAN: A 77-year-old male, hypertension, diabetes, chronic obstructive lung disease, prostate cancer, and renal insufficiency with ALLERGY TO PENICILLIN, treated with one week of Levaquin as outpatient and now with community-acquired pneumonia, rule out pseudomembranous colitis, on Azactam and doxycycline pending cultures and initial workup results including procalcitonin, urine for Legionella, stool for Clostridium difficile, and sputum culture. We will follow with you. Reji Jane MD
--- NOTE | 2017-11-21 22:27 | PN ---
DATE: 11/21/2017 SUBJECTIVE: The patient is in bed, in no acute distress, nontoxic. PHYSICAL EXAMINATION: VITAL SIGNS: Temperature is 98, blood pressure is 150/80, respiratory rate of 20. HEENT: Unremarkable. NECK: Supple. LUNGS: Have decreased breath sounds. HEART: Normal S1, S2. ABDOMEN: Soft, nontender. LABORATORY DATA: Reveals a white count is 11,500, hemoglobin of 9. BUN of 21, creatinine of 1.3, procalcitonin is 0.15. Urinalysis is noted. Microbiology reveals stool C. diff is negative. Urine cultures negative. Blood cultures negative. Sputum culture is negative. ASSESSMENT AND PLAN This is a 77-year-old male with past medical history of prostate cancer, renal disease, diabetes, systemic inflammatory response syndrome, negative cultures, negative urine cultures, negative urinalysis, negative procalcitonin, currently on p.o. doxycycline. Stool Clostridium difficile is negative and p.o. vancomycin was discontinued. We will check on the urine for Legionella antigen, is pending. Reji Jane MD
[2017-11-22] MEDS: Albuterol-Ipratrop 3 mg / 0.5 (3 ml) UD IH SCH ×4 (02:00→19:24)
[2017-11-22] MEDS: Pantoprazole 40 mg EC Tab PO SCH ×2 (05:27→05:28)
[2017-11-22 07:09] LABS: BLOOD UREA NITROGEN 24 mg/dL (7-21); CALCIUM 8.4 mg/dL (8.4-10.5); CARBON DIOXIDE 28 mmol/L (21-33); CHLORIDE 104 mmol/L (98-107); GFR AFRICAN-AMERICAN > 60; GLUCOSE,RANDOM 168 mg/dL (70-110); POTASSIUM 4.2 mmol/L (3.6-5.0); SODIUM 138 mmol/L (132-148)
--- NOTE | 2017-11-22 07:58 | CP.PCM.PN ---
Subjective - Date & Time of Evaluation Date of Evaluation: 11/22/17 Time of Evaluation: 07:00 - Subjective Subjective: Stable on 5R. He feels better. No chest pain or SOB at rest. Ambulated yesterday. V/S noted. P = reg at 80 PE: Lungs: rhonchi Cor: S1S2, sys. murmur Abd.: soft Ext.: no edema Neuro.: alert I/O= 1020/200 recorded BC X2 NG at 3 days Echo: Nl LV, Mod. LVH, Mild and AI, Mod. TR ECG 11/21: RSR Objective - Vital Signs/Intake and Output Vital Signs (last 24 hours): Temp Pulse Resp BP Pulse Ox 98.0 F 88 20 110/60 93 L 11/21/17 07:30 11/21/17 17:58 11/21/17 07:30 11/21/17 17:58 11/21/17 07:30 Intake and Output: 11/22/17 11/22/17 06:59 18:59 Intake Total 1020 Output Total 200 Balance 820 - Medications Medications: Current Medications Acetaminophen (Tylenol 325mg Tab) 650 mg PO Q6H PRN PRN Reason: Fever >100.4 F Albuterol/Ipratropium (Duoneb 3 Mg/0.5 Mg (3 Ml) Ud) 3 ml IH Q2H PRN PRN Reason: Shortness of Breath Albuterol/Ipratropium (Duoneb 3 Mg/0.5 Mg (3 Ml) Ud) 3 ml IH [id number] [facility] Last Admin: 11/22/17 02:00 Dose: Not Given Amlodipine Besylate (Norvasc) 10 mg PO DAILY [facility] Last Admin: 11/21/17 10:32 Dose: 10 mg Apixaban (Eliquis) 5 mg PO BID [facility] PRN Reason: Protocol Last Admin: 11/21/17 17:58 Dose: 5 mg Aspirin (Aspirin Chewable) 81 mg PO DAILY [facility] Last Admin: 11/21/17 10:31 Dose: 81 mg Bethanechol Chloride (Urecholine) 25 mg PO TID [facility] Last Admin: 11/21/17 17:58 Dose: 25 mg Carvedilol (Coreg) 12.5 mg PO BID [facility] Last Admin: 11/21/17 17:58 Dose: 12.5 mg Doxercalciferol (Hectorol) 2.5 mcg PO DAILY [facility] Last Admin: 11/21/17 10:30 Dose: 2.5 mcg Doxycycline Hyclate (Doryx) 100 mg PO Q12 [facility] Last Admin: 11/21/17 21:03 Dose: 100 mg Ezetimibe (Zetia) 10 mg PO DAILY [facility] Last Admin: 11/21/17 10:31 Dose: 10 mg Finasteride (Proscar) 5 mg PO DAILY [facility] Last Admin: 11/21/17 10:31 Dose: 5 mg Furosemide (Lasix) 40 mg PO DAILY [facility] Last Admin: 11/21/17 10:32 Dose: 40 mg Glimepiride (Amaryl) 4 mg PO BID [facility] Last Admin: 11/21/17 17:58 Dose: 4 mg Insulin Human Regular (Humulin R Med) 0 units SC ACHS [facility] PRN Reason: Protocol Last Admin: 11/21/17 22:07 Dose: Not Given Ondansetron HCl (Zofran Inj) 4 mg IVP Q6H PRN PRN Reason: Nausea/Vomiting Pantoprazole Sodium (Protonix Ec Tab) 40 mg PO 0630 [facility] Last Admin: 11/22/17 05:28 Dose: 40 mg Potassium Chloride (Klor-Con 10) 30 meq PO BID [facility] Last Admin: 11/21/17 17:57 Dose: 30 meq Tamsulosin HCl (Flomax) 0.4 mg PO BID [facility] Last Admin: 11/21/17 17:57 Dose: 0.4 mg Valsartan (Diovan) 320 mg PO DAILY [facility] Last Admin: 11/21/17 10:32 Dose: 320 mg - Labs Labs: 11/21/17 09:10 11/22/17 06:20 PT 14.0 SECONDS (9.4-12.5) H 11/18/17 12:49 INR 1.27 (0.93-1.08) H 11/18/17 12:49 APTT 29.9 Seconds (25.1-36.5) 11/18/17 12:49 Assessment and Plan - Assessment and Plan (Free Text) Assessment: SOB/Pneumonia Diarrhea PAF HBP Diabetes COPD/Former Smoker BPH CKD Gout Prostate cancer Echo: Mild and AI, Mod. TR Plan: AB OOB/Ambulate as rudolph PO Lasix F/U CXR today Continue Eliquis for now. TCU Eval. As per [facility] and Dr. Petty
[2017-11-22] MEDS: Insulin Reg-MEDIUM-Coverage SC SCH ×4 (08:14→21:57)
[2017-11-22] MEDS: Potassium Chloride 10 mEq ER Tab PO SCH ×3 (09:15→18:55)
--- NOTE | 2017-11-22 09:17 | IP.NPCORE ---
Pneumonia Progress Notes - Oxygenation Assessment (REQUIRED) Documented 02: Yes O2 Saturation: 90 Oxygen Delivery Method: Nasal Cannula Date: 11/19/17 Time: 16:00 Documented P02: Yes Date:: 11/18/17 Time:: 12:49 - Blood Cultures (REQUIRED) Culture drawn: Yes Date:: 11/18/17 Time:: 12:49 - Initial Antibiotic Initial Antibiotic given within Four Hours:: Yes (Levaquin) - Appropriate Antibiotic Appropriate Antibiotic within 24 hours of Admission:: Yes (Doxycycline, Azactam) Current Antibiotic: Doxycycline - Smoking Cessation Ex-Smoker (has not smoked in the last 12 months): Yes
[2017-11-22 10:42] VITALS: PULSE 86; TEMP 98.4; O2SAT 94
--- NOTE | 2017-11-22 11:08 | RAD ---
HISTORY: pneumonia, F/U cxr COMPARISON: Chest radiograph dated 11/18/2017. TECHNIQUE: Chest PA and lateral FINDINGS: LUNGS: Similar appearance of patchy right upper and middle lobe infiltrates. PLEURA: Small right pleural effusion. No pneumothorax apparent. CARDIOVASCULAR: Unchanged OSSEOUS STRUCTURES: Unchanged. VISUALIZED UPPER ABDOMEN: Normal. OTHER FINDINGS: None. IMPRESSION: No significant change in appearance of patchy right upper and middle lobe infiltrates. Small right pleural effusion.
[2017-11-22 18:43] VITALS: BP 132/68
--- NOTE | 2017-11-23 00:14 | PN ---
DATE: 11/22/2017 SUBJECTIVE: The patient seen in bed early this morning in room 565, bed 1. No fevers, no chills. No nausea. PHYSICAL EXAMINATION: VITAL SIGNS: Temperature is 98 blood pressure is 130/70, respiratory rate of 20, heart rate of 86. HEENT: Unremarkable. NECK: Supple. LUNGS: Have decreased breath sounds. HEART: Normal S1, S2. ABDOMEN: Soft, nontender, no rebound or guarding. LABORATORY EXAMINATION: Reveals a white count 11,500, hemoglobin of 9, platelets of 292. BUN of 24, creatinine of 1.2. Urinalysis is noted. Microbiology reveals the sputum yeast. Stool for C. diff; negative toxin and negative antigen. Blood cultures are negative. Urine cultures are no growth. ASSESSMENT AND PLAN: This is a 77-year-old male with past medical history significant for prostate cancer, renal disease, diabetes, systemic inflammatory response syndrome, negative cultures, negative Clostridium difficile, and urine for Legionella antigen is pending. The patient is on p.o. doxycycline.. Chest x-ray shows slight small right pleural effusion, no pneumothorax, the lungs patchy right upper and middle lobe infiltrate. We will follow with you. Reji Jane MD
--- NOTE | 2017-11-23 05:33 | DS ---
HISTORY OF PRESENT ILLNESS: The patient is 77-year-old, seen and examined, doing well, eating and tolerating, No nausea or vomiting. No diarrhea. PHYSICAL EXAMINATION: VITAL SIGNS: The patient is afebrile, pulse 86, respirations 20, blood pressure 116/65. LUNGS: Bilateral soft crackles at basis. HEART: S1 and S2 audible. ABDOMEN: Soft and nontender. No rebound. No guarding. NEUROLOGIC: The patient is awake, alert, oriented, and communicative. LABORATORY EXAM: Blood sugar is 160. Sodium 138, potassium 4.2, chloride 104, CO2 of 28, BUN 24, creatinine 1.2. Blood sugar of 168. Sputum has yeast. Stool for C. diff is negative. ASSESSMENT: 1. Failed outpatient treatment. 2. Bilateral pneumonia. 3. Chronic atrial fibrillation. 4. Hypertension. 5. Morbid obesity. 6. Active smoker. PLAN: The patient is currently on antibiotic, nebulizer treatment. We will monitor blood sugar. Continue on Eliquis. The patient is accepted in TCU. He will be transferred to TCU to complete course of antibiotic. Joselito Petty MD
== END 2017-11-22 23:02 | DRG 194 ==
LOC: ED 12:02 → ERH 13:16 → 5RNO 15:16 → OBSVTOIN 18:52
PROVIDERS: ADMIT Internal Medicine; ATTEND Internal Medicine
DX: J18.9 Pneumonia, unspecified organism (principal); R65.10 Systemic inflammatory response syndrome (SIRS) of non-infectious origin without acute organ dysfunction; J44.0 Chronic obstructive pulmonary disease with (acute) lower respiratory infection; I13.0 Hypertensive heart and chronic kidney disease with heart failure and stage 1 through stage 4 chronic kidney disease, or unspecified chronic kidney disease; E11.22 Type 2 diabetes mellitus with diabetic chronic kidney disease; I48.0 Paroxysmal atrial fibrillation; E66.01 Morbid (severe) obesity due to excess calories; I50.9 Heart failure, unspecified; N18.9 Chronic kidney disease, unspecified; E78.5 Hyperlipidemia, unspecified; I35.0 Nonrheumatic aortic (valve) stenosis; F17.200 Nicotine dependence, unspecified, uncomplicated; N40.0 Benign prostatic hyperplasia without lower urinary tract symptoms; M10.9 Gout, unspecified; R19.7 Diarrhea, unspecified; T36.95XA Adverse effect of unspecified systemic antibiotic, initial encounter; E87.6 Hypokalemia; Z79.4 Long term (current) use of insulin; Z88.0 Allergy status to penicillin; Z85.46 Personal history of malignant neoplasm of prostate; Z79.82 Long term (current) use of aspirin; Z68.34 Body mass index [BMI] 34.0-34.9, adult; Z79.84 Long term (current) use of oral hypoglycemic drugs; Z79.01 Long term (current) use of anticoagulants

== ENCOUNTER 2017-11-22 23:02 | Inpatient (IN) | payer OTHER ==
[2017-11-22] MEDS ORDERED: Albuterol-Ipratrop 3 mg / 0.5 (3 ml) UD IH PRN (23:20)
[2017-11-23] MEDS ORDERED: Influenza Vaccine 60 mcg/0.5 mL SYR (4YR UP) IM ONE (00:42)
[2017-11-23] MEDS ORDERED: Pneumococcal 23-Valent Vaccine IM ONE (00:42)
[2017-11-23] MEDS: Albuterol-Ipratrop 3 mg / 0.5 (3 ml) UD IH SCH ×5 (02:13→19:41)
[2017-11-23] MEDS: Pantoprazole 40 mg EC Tab PO SCH (06:09)
[2017-11-23] MEDS: Insulin Reg-MEDIUM-Coverage SC SCH ×4 (07:40→22:16)
[2017-11-23] MEDS: Potassium Chloride 10 mEq ER Tab PO SCH ×2 (08:55→17:41)
--- NOTE | 2017-11-23 20:19 | CON ---
DATE: 11/23/2017 CHIEF COMPLAINT: Weakness times several days. HISTORY OF PRESENT ILLNESS: This is a 77-year-old male with obesity with BMI of 34, hypertension, diabetes mellitus, chronic obstructive lung disease, prostate cancer, renal insufficiency, right arm surgery, tonsillectomy, who is allergic to PENICILLIN, who was admitted with a diagnosis of pneumonia due to acute care. The patient is now transferred to transitional care room 313 for physical therapy, and the patient was found to have negative C. diff, negative urine for Legionella antigen, negative blood cultures and at this time, he denies any fevers, any chills. No nausea, no vomiting. PAST MEDICAL HISTORY: Significant for obesity, BMI of 34, hypertension, diabetes, chronic obstructive lung disease, prostate cancer, renal insufficiency. PAST SURGICAL HISTORY: Significant for right arm surgery, tonsillectomy. ALLERGIES: THE PATIENT IS ALLERGIC TO PENICILLIN. PHYSICAL EXAMINATION: VITAL SIGNS: The patient's temperature is 98, blood pressure is 180/80, respiratory rate 22, heart rate of 93. HEENT: Unremarkable. NECK: Supple. LUNGS: Have decreased breath sounds. HEART: Normal S1, S2. ABDOMEN: Soft, nontender. No rebound or guarding. LABORATORY: Reveals a white count of 12,400, down to 11,500 today and the coagulation is noted and BUN of 24, creatinine of 1.2. Procalcitonin is 0.15 and laboratories are noted. X-ray from yesterday is noted. ASSESSMENT/PLAN: A 77-year-old male with obesity, body mass index of 34 with hypertension, diabetes, chronic obstructive lung disease, prostate cancer, renal insufficiency and admitted with systemic inflammatory response syndrome and workup negative as far as microbiology with negative blood cultures, negative urine cultures, negative stool. The sputum cultures did grow yeast. The patient is currently on p.o. doxycycline. We will follow closely with you. Rjei Jane MD
--- NOTE | 2017-11-24 00:21 | HP ---
HISTORY OF PRESENT ILLNESS: Patient is 77 years old, came to the emergency room because of high grade fever, cough, and intractable diarrhea. The patient states that he has been sick for the last 2 to 3 weeks. He went to see Dr. Jose, but was seen by a nurse practitioner, was given Zithromax with no significant relief. He went second time, he was given another course of Zithromax that day, he developed diarrhea, felt very weak and tired, so prior to coming to the hospital, he was seen by Dr. Jose who felt that the patient needed to be admitted because of failed outpatient treatment. PAST MEDICAL HISTORY: Significant for hypertension, hyperlipidemia, chronic AFib, morbid obesity, and COPD. ALLERGIES: HE IS ALLERGIC TO ATORVASTATIN, PENICILLIN, PROCAINE, PROPOXYPHENE, DARVON, AND NOVOCAIN. MEDICATIONS: At home: He is on amlodipine, valsartan, Flomax, Viagra, Prandin, potassium, Protonix, nisoldipine, Tradjenta, Avapro, and insulin. FAMILY HISTORY: He is , lives with his . SOCIAL HISTORY: Denies alcohol abuse, socially drinks, but does not smoke. PHYSICAL EXAMINATION: GENERAL: He is awake, alert, oriented, communicative. VITAL SIGNS: He is afebrile, pulse 90, respirations 20, blood pressure 186/82. LUNGS: Bilateral good airflow. No rhonchi or crackle. HEART: S1, S2 audible. ABDOMEN: Soft, nontender. Obese. No hepatosplenomegaly. NEUROLOGICAL: Patient is awake and alert. Able to communicate. Ambulatory. LABORATORY EXAMINATION: Blood sugar is 255. ASSESSMENT AND PLAN: 1. Morbid obesity. 2. Resolving pneumonia. 3. Hypertension. 4. Non-insulin dependent diabetes. 5. Active smoker. 6. Chronic obstructive pulmonary disease. PLAN: Currently, the patient is on glimepiride, aspirin. I will add Catapres 0.2 t.i.d., carvedilol and losartan and get nebulizer treatment. He is on Eliquis, we will continue that. We will monitor his blood pressure closely. We will follow up this patient in a.m. Joselito Petty MD
[2017-11-24] MEDS: Albuterol-Ipratrop 3 mg / 0.5 (3 ml) UD IH SCH ×4 (03:05→22:40)
[2017-11-24] MEDS: Pantoprazole 40 mg EC Tab PO SCH (05:27)
[2017-11-24] MEDS: Insulin Reg-MEDIUM-Coverage SC SCH ×4 (06:47→23:09)
[2017-11-24] MEDS: Potassium Chloride 10 mEq ER Tab PO SCH ×2 (10:53→17:41)
--- NOTE | 2017-11-24 15:22 | PN ---
DATE: 11/24/2017 SUBJECTIVE: The patient is in bed in no acute distress, nontoxic. PHYSICAL EXAMINATION: VITAL SIGNS: Temperature is 98, blood pressure is 150/70, and respiratory rate of 18. HEENT: Unremarkable. NECK: Supple. LUNGS: Have decreased breath sounds. HEART: Normal S1 and S2. ABDOMEN: Soft and nontender. LABORATORY EXAMINATION: Reviewed. ASSESSMENT AND PLAN: This is a 77-year-old male with obesity, body mass index of 34, hypertension, diabetes, chronic obstructive lung disease, prostate cancer, renal insufficiency admitted with systemic inflammatory response syndrome and negative blood cultures, negative urine cultures, and on p.o. doxycycline. The patient did have a procalcitonin of 0.15 on 11/18/2017. We will follow with you. Reji Jane MD
[2017-11-25] MEDS: Albuterol-Ipratrop 3 mg / 0.5 (3 ml) UD IH SCH ×4 (03:39→21:44)
[2017-11-25] MEDS: Pantoprazole 40 mg EC Tab PO SCH (06:34)
[2017-11-25] MEDS: Insulin Reg-MEDIUM-Coverage SC SCH ×4 (06:44→21:31)
[2017-11-25] MEDS: Potassium Chloride 10 mEq ER Tab PO SCH ×2 (08:53→18:00)
--- NOTE | 2017-11-25 11:38 | PN ---
DATE: 11/25/2017 SUBJECTIVE: The patient in bed in no acute distress, nontoxic. No fevers. PHYSICAL EXAMINATION: VITAL SIGNS: Temperature is 98, blood pressure is 140/70, respiratory rate is 18. HEENT: Unremarkable. NECK: Supple. LUNGS: Decreased breath sounds. HEART: Normal S1 and S2. ABDOMEN: Soft. LABORATORY DATA: Reviewed and microbiology is reviewed. ASSESSMENT AND PLAN: The patient is a 77-year-old male who is seen early this morning. The patient's was at the bedside who states that the patient is doing well and with a history of obesity, BMI of 34, hypertension, diabetes, chronic obstructive lung disease, prostate cancer, renal insufficiency, admitted with systemic inflammatory response syndrome, negative blood cultures, negative urine cultures, on p.o. doxycycline. Today is day #8 of antibiotics, we will discontinue the doxycycline after today's last dose. Reji Jane MD
--- NOTE | 2017-11-25 19:56 | PN ---
DATE: SUBJECTIVE: The patient is a 77-year-old seen and examined, lying in bed, seems to be comfortable. Has scanty cough. PHYSICAL EXAMINATION VITAL SIGNS: He is afebrile, pulse 70, respirations 18 and blood pressure 152/73. LUNGS: Bilateral fair airflow. No rhonchi or crackle. HEART: S1 and S2 audible. ABDOMEN: Soft, obese and nontender. No rebound. No guarding. NEUROLOGIC: He is awake, alert and oriented. Able to communicate. LABORATORY DATA: Blood sugar is 202. ASSESSMENT: 1. Community acquired pneumonia, failed outpatient treatment. 2. Chronic atrial fibrillation. 3. Hypertension. 4. Hyperlipidemia. 5. Morbid obesity. 6. Non-insulin dependent diabetes. PLAN: We will continue the patient on doxycycline. He is on Eliquis. Encourage ambulation. We will continue him on glimepiride. Since his kidney function is okay, I will start him on metformin. Joselito Petty MD
[2017-11-26] MEDS: Albuterol-Ipratrop 3 mg / 0.5 (3 ml) UD IH SCH ×4 (03:40→20:18)
[2017-11-26] MEDS: Pantoprazole 40 mg EC Tab PO SCH (06:08)
[2017-11-26 06:10] LABS: BASO # 0.02 K/mm3 (0.0-2.0); BASO % 0.2 % (0.0-3.0); EOS # 0.4 (0.0-0.7); EOS % 3.9 % (1.5-5.0); GRAN # 7.21 (1.4-6.5); GRAN % 77.8 % (50.0-68.0); HEMOGLOBIN 9.7 g/dL (14.0-18.0); LYMPH # 0.8 (1.2-3.4); LYMPH % 8.9 % (22.0-35.0); MEAN CELL VOLUME 84.4 fl (80.0-105.0); MEAN CORPUSCULAR HGB CONC 33.1 g/dl (31.0-37.0); MEAN PLATELET VOLUME 10.8 fl (7.0-11.0); MONO # 0.9 (0.1-0.6); MONO % 9.2 % (1.0-6.0); RBC 3.47 10^6/uL (3.5-6.1); WHITE BLOOD COUNT 9.3 10^3/ul (4.5-11.0)
[2017-11-26] MEDS: Insulin Reg-MEDIUM-Coverage SC SCH ×4 (06:34→21:24)
[2017-11-26 06:46] LABS: ALBUMIN 2.9 g/dL (3.0-4.8); CALCIUM 8.7 mg/dL (8.4-10.5)
[2017-11-26] MEDS: Potassium Chloride 10 mEq ER Tab PO SCH ×2 (09:11→17:16)
--- NOTE | 2017-11-26 09:20 | PN ---
DATE: 11/24/2017 SUBJECTIVE: The patient is a 77-year-old, seen and examined, sitting in chair, seems to be comfortable. No nausea, vomiting. No diarrhea. Cough and shortness of breath is better. PHYSICAL EXAMINATION VITAL SIGNS: The patient is afebrile, pulse 86, respirations 18, blood pressure 157/70. LUNGS: Bilateral fair airflow. No rhonchi or crackles. HEART: S1 and S2 audible. No murmur. ABDOMEN: Soft, obese, nontender. No rebound. No guarding. NEUROLOGICAL: The patient is awake, alert, oriented, able to communicate. LABORATORY DATA: Blood sugar is 180, his recent sputum, stool for C. diff is negative. ASSESSMENT: 1. Status post diarrhea secondary to antibiotics. 2. Community acquired pneumonia. 3. Failed outpatient treatment. 4. Chronic atrial fibrillation. 5. Renal insufficiency. 6. Hypertension. 7. Non-insulin dependent diabetes. PLAN: Currently, the patient is on clonidine 0.2 t.i.d., aspirin 81 daily, glimepiride 4 mg twice a day, Valsartan 320 daily, he is doxycycline. He is on Eliquis 5 mg b.i.d. and monitor his blood sugar. He is on Lasix. We will follow up the patient in a.m. Jimbo Polanco MD
--- NOTE | 2017-11-26 13:04 | PN ---
DATE: 11/26/2017 SUBJECTIVE: The patient is in bed, in no acute distress, nontoxic. PHYSICAL EXAMINATION: VITAL SIGNS: Temperature is 97, blood pressure is 170/80, respiratory rate of 18, heart rate of 67. HEENT: Unremarkable. NECK: Supple. LUNGS: Have decreased breath sounds. HEART: Normal S1, S2. ABDOMEN: Soft, nontender. LABORATORY DATA: Reveals a white count of 9.3, hemoglobin of 9, platelets of 257, BUN of 35, creatinine of 1.4 and a stool for occult blood is positive. Microbiology is noted. ASSESSMENT AND PLAN: A 77-year-old male, the patient is seen early this morning, in no acute distress, nontoxic with history of obesity, BMI of 34, hypertension, diabetes, chronic obstructive lung disease, prostate cancer, renal insufficiency admitted with systemic inflammatory response syndrome with negative blood cultures, negative urine cultures, received 8 days of doxycycline. Currently, the patient is off of antibiotics. We will discontinue doxycycline, today is day #9. The patient did have a procalcitonin 0.15. We will follow the patient off of antibiotics. Dr. Petty's note is reviewed from yesterday. Reji Jane MD
--- NOTE | 2017-11-26 20:22 | PN ---
SUBJECTIVE: Patient is a 77-year-old, seen and examined, lying in bed, seems to be comfortable. No nausea or vomiting, no diarrhea. Eating and tolerating. PHYSICAL EXAMINATION VITAL SIGNS: He is afebrile. Pulse 76, respirations 15, blood pressure 135/65. LUNGS: Bilateral good airflow. No rhonchi or crackles. HEART: S1 and S2 audible. ABDOMEN: Soft, nontender. No rebound. Obese. No hepatosplenomegaly. EXTREMITIES: Bilateral legs +1 edema. LABORATORY EXAMINATION: WBC 9.3, hemoglobin 9.7, hematocrit 29.6, platelet 257. Chemistries: Sodium 135, potassium 4.5, chloride 102, CO2 of 25, BUN 35, creatinine 1.4, blood sugar of 153. Stool for hemoccult is positive. ASSESSMENT: 1. Failed outpatient treatment. 2. Community acquired pneumonia. 3. Chronic atrial fibrillation. 4. Hypertension. 5. Hyperlipidemia. 6. Stool positive for hemoccult. PLAN: We will start the patient on Eliquis and get GI evaluation by Dr. Gore. Joselito Petty MD
[2017-11-27] MEDS: Albuterol-Ipratrop 3 mg / 0.5 (3 ml) UD IH SCH ×4 (01:33→20:45)
[2017-11-27] MEDS: Pantoprazole 40 mg EC Tab PO SCH (06:21)
[2017-11-27] MEDS: Insulin Reg-MEDIUM-Coverage SC SCH ×4 (06:52→21:33)
[2017-11-27] MEDS: Potassium Chloride 10 mEq ER Tab PO SCH ×2 (08:40→18:00)
--- NOTE | 2017-11-27 21:43 | PN ---
DATE: 11/27/2017 SUBJECTIVE: The patient is in bed, in no acute distress, nontoxic. PHYSICAL EXAMINATION: VITAL SIGNS: Temperature is 98, blood pressure is 120/60, respiratory rate of 17, heart rate of 77. HEENT: Unremarkable. NECK: Supple. LUNGS: Have decreased breath sounds. HEART: Normal S1, S2. ABDOMEN: Soft, nontender. LABORATORY DATA: Reveals a white count of 9.3, hemoglobin of 9, platelets of 257. Chemistries are noted. Creatinine is 1.4 and a stool for occult blood is positive. ASSESSMENT AND PLAN: This is a 77-year-old male, who is seen early this morning, his at the bedside, nontoxic with history of obesity, BMI of 34, hypertension, diabetes, chronic obstructive lung disease, prostate cancer, renal insufficiency admitted with systemic inflammatory response syndrome with negative blood cultures, negative urine cultures, received 8 days of doxycycline. Currently, off of antibiotics. We will follow with you. Reji Jane MD
--- NOTE | 2017-11-27 23:19 | PN ---
DATE: SUBJECTIVE: The patient is a 77-year-old, seen and examined, sitting in chair, seems to be comfortable, scanty cough. PHYSICAL EXAMINATION: VITAL SIGNS: The patient is afebrile, pulse 77, respirations 18 and blood pressure 121/69. LUNGS: Bilateral good airflow. No rhonchi or crackle. HEART: S1 and S2 audible. ABDOMEN: Soft, obese and nontender. No rebound. No guarding. NEUROLOGIC: The patient is awake and alert, communicative. LABORATORY EXAMINATION: Blood sugar is 132. Stool for Hemoccult is positive. ASSESSMENT AND PLAN: 1. Paroxysmal atrial fibrillation, new onset. 2. Community-acquired pneumonia. 3. Hypertension. 4. Positive stool for Hemoccult. 5. Jrx-mbswihz-hvagjqxgi diabetes. PLAN: I will order for CBC, CMP in a.m. I will order for EKG. I will request cardiology evaluation to determine if patient needs to be on Eliquis, he states he was not on it before and this paroxysmal atrial fibrillation could be transient. I will request Dr. Grey to evaluate the patient for that reason. Joselito Petty MD
--- NOTE | 2017-11-28 01:40 | CON ---
DATE: 11/27/2017 This patient was seen and evaluated earlier today. HISTORY OF PRESENT ILLNESS: This is a 77-year-old patient who was admitted to the hospital for failed outpatient therapy for respiratory infection. The patient is with high fever and cough. The patient was initially given antibiotic, Zithromax, had diarrhea and another course of antibiotic was given. The patient still had diarrhea. Since admission, he did not have any diarrhea. The patient was found to have atrial fibrillation, started on an Eliquis. Noticed to have a slow drop in blood count. The patient was concerned because of that drop in blood count. The patient denies having any melena or bright red blood per rectum. The patient mentioned to me he has been followed in the [facility] 4 years ago. He had an endoscopy and colonoscopy done 4 years ago, and he was told to have some abnormalities in the esophagus, had some biopsies. A colonoscopy was negative. The patient was advised to follow up but he did not do that. The patient had a history of questionable prostate cancer, was followed, but he was told that it was not a cancer. The patient had a right forearm melanoma removed and also axillary clearance done few years ago. PAST MEDICAL HISTORY: Other past medical history is significant for hypertension, dyslipidemia, morbid obesity, COPD, diabetes mellitus. ALLERGIES: HE IS ALLERGIC TO MULTIPLE MEDICATIONS INCLUDING ATORVASTATIN, PENICILLIN, PROCAINE, PROPOXYPHENE, DARVON, AND NOVOCAIN. SOCIAL HISTORY: He denies alcohol, denies smoking. FAMILY HISTORY: Noncontributory. REVIEW OF SYSTEMS: Positive as above. Other systems reviewed. PHYSICAL EXAMINATION: GENERAL: The patient is lying on the bed, not in acute distress. VITAL SIGNS: Temperature is afebrile, pulse is 77, blood pressure 121/68, O2 saturation 94%. HEENT: Atraumatic, anicteric. NECK: Supple. HEART: S1, S2 heard. LUNGS: Bilateral air entry present. EXTREMITIES: 1+ edema present. NEUROLOGICAL: Alert, oriented, moves all the extremities. LABORATORY DATA: Hemoglobin 9.7, hematocrit 29.3, WBC 9.3, platelets 257. BUN 35, creatinine 1.4. IMPRESSION: This is a 77-year-old patient, admitted with systemic inflammatory response syndrome, presently on doxycycline, ?history of prostate cancer (patient denies cancer of the prostate, he states it is only enlarged prostate,,) chronic kidney disease. The Hb was 9.7, he has had chronic anemia, but 3 years ago, his hemoglobin was 12.8. slow drop in Hb The concern is his stool for occult blood positive. RECOMMENDATION: We would recommend to, 1. Continue the proton pump inhibitors. 2. Close followup of the hemoglobin and hematocrit. 3. We will request for iron studies. 4. The patient would benefit from the endoscopy and colonoscopy. As the patient is on Eliquis, we will discuss with the [facility] and also Dr. Petty. At the movement, the hemoglobin appears to be stable. We will have close followup. I had a detailed discussion with the patient. The patient would clearly benefit from the upper gastrointestinal workup, especially,in view of the above history of workup done in [facility] in the past. Thank you very much for allowing us to participate in the care of the patient. Miladis Gore MD MTDLucretia
[2017-11-28] MEDS: Albuterol-Ipratrop 3 mg / 0.5 (3 ml) UD IH SCH ×4 (02:01→21:04)
[2017-11-28] MEDS: Pantoprazole 40 mg EC Tab PO SCH (05:27)
[2017-11-28] MEDS: Insulin Reg-MEDIUM-Coverage SC SCH ×4 (06:31→22:37)
[2017-11-28] MEDS: Potassium Chloride 10 mEq ER Tab PO SCH ×2 (09:10→17:42)
--- NOTE | 2017-11-28 15:59 | PN ---
DATE: 11/28/2017 SUBJECTIVE: The patient is in bed in no acute distress, nontoxic. PHYSICAL EXAMINATION: VITAL SIGNS: Temperature is 98, blood pressure is 150/70, respiratory rate of 18, and heart rate of 77. HEENT: Unremarkable. NECK: Supple. LUNGS: Have decreased breath sounds. HEART: Normal S1 and S2. ABDOMEN: Soft and nontender. LABORATORY EXAMINATION: Reveals a white count of 9.3, hemoglobin of 9, and platelets of 257. Chemistries are noted and the patient has a BUN of 35 and creatinine of 1.4. Microbiology is noted. ASSESSMENT AND PLAN: He is a 77-year-old male was seen early this morning, nontoxic with a history of obesity, body mass index of 34, hypertension, diabetic, chronic obstructive lung disease, prostate cancer, renal insufficiency admitted with systemic inflammatory response syndrome, negative cultures and received 8 days of doxycycline, currently now off of antibiotics and afebrile. The patient did have a normal procalcitonin and acute care. We will follow with you. The patient is at risk for developing nosocomial infection. Reji Jane MD
--- NOTE | 2017-11-28 17:48 | CARD ---
APPROVED REPORT EKG Measurement Heart [id number] 134P-8 [id number] <Conclusion> Normal sinus rhythm Left axis deviation Abnormal ECG
[2017-11-28 17:51] VITALS: RESP 20
--- NOTE | 2017-11-28 21:03 | PN ---
DATE: SUBJECTIVE: The patient is a 77-year-old seen and examined, sitting in chair, seems to be comfortable, complain of bilateral leg swelling and itchy rash on both shins. Cough seems to be improving. Appetite seems to be okay. No nausea or vomiting. PHYSICAL EXAMINATION VITAL SIGNS: He is afebrile, pulse 75, respirations 20 and blood pressure 138/74. LUNGS: Bilateral fair airflow. Occasional expiratory rhonchi, left lower back. HEART: S1 and S2 audible. ABDOMEN: Soft, obese and nontender. No rebound. No guarding. EXTREMITIES: Bilateral leg +2 edema. NEUROLOGIC: He is awake, alert, oriented and able to ambulate. LABORATORY DATA: Blood sugar is 129. Stool Hemoccult is positive. Had EKG done this morning shows normal sinus rhythm, left axis deviation. ASSESSMENT AND PLAN: 1. Community acquired pneumonia, status post failed outpatient treatment. 2. Non-insulin dependent diabetes. 3. Hypertension. 4. Brief episode of atrial fibrillation. The patient was started on Eliquis, but he was started to have hemoptysis, so it is being discontinued. We will monitor his blood sugar. Followup electrolyte and encourage ambulation and continue Physical Therapy. Joselito Petty MD
--- NOTE | 2017-11-29 00:43 | PN ---
DATE: 11/28/2017 SUBJECTIVE: This patient was seen and evaluated earlier today. The patient is comfortable. No evidence of bleeding per rectum. No diarrhea, tolerating the diet. PHYSICAL EXAMINATION: VITAL SIGNS: Temperature 98.1, pulse 75, blood pressure is 138/74. HEENT: Atraumatic, anicteric. NECK: Supple. HEART: S1 and S2 heard. LUNGS: Bilateral air entry present. ABDOMEN: Soft. There is no mass palpable. No tenderness. LABORATORY DATA: Hemoglobin is 9.7, hematocrit 29.3, WBC is 9.3, platelets of 257. BUN 35, creatinine 0.5. IMPRESSION AND PLAN: This 77-year-old patient admitted with pneumonia, failed outpatient therapy. The patient has atrial fibrillation, now with anticoagulation, on Eliquis. The patient is still on Eliquis. The patient was found to have stool for occult blood positive, anemia,. No obvious melena or bright red blood per rectum now. I had a detailed discussion with Dr. Petty. The concern is Eliquis if Eliquis can be stopped. This patient has anemia, occult blood positive, history of atrial fibrillation, on anticoagulation. The concern is doing GI workup which will avoid doing it. In view of the recent respiratory infection, there is a small risk of aspiration and complications during endoscopic evaluation. Unless the patient has an active bleeding and significant drop in blood count, we should defer doing an endoscopy at the present time. Once the respiratory status completely improved, can be arranged as an outpatient. We would also get a cardiologic input whether the Eliquis can be stopped for the procedure. Thank you very much for allowing us to participate in the care of your patient. Miladis Gore MD GM
[2017-11-29] MEDS: Albuterol-Ipratrop 3 mg / 0.5 (3 ml) UD IH SCH ×4 (01:23→19:45)
[2017-11-29] MEDS: Pantoprazole 40 mg EC Tab PO SCH (05:38)
[2017-11-29] MEDS: Insulin Reg-MEDIUM-Coverage SC SCH ×4 (06:41→21:45)
[2017-11-29 07:20] LABS: BASO # 0.01 K/mm3 (0.0-2.0); BASO % 0.1 % (0.0-3.0); EOS # 0.4 (0.0-0.7); EOS % 5.2 % (1.5-5.0); GRAN # 4.8 (1.4-6.5); GRAN % 70.8 % (50.0-68.0); HEMOGLOBIN 9.2 g/dL (14.0-18.0); LYMPH % 14.9 % (22.0-35.0); MEAN CELL VOLUME 84.5 fl (80.0-105.0); MEAN CORPUSCULAR HEMOGLOBIN 27.5 pg (25.0-35.0); MEAN CORPUSCULAR HGB CONC 32.5 g/dl (31.0-37.0); MONO # 0.6 (0.1-0.6); RBC 3.35 10^6/uL (3.5-6.1); RED CELL DISTRIBUTION WIDTH 14.3 % (11.5-14.5); WHITE BLOOD COUNT 6.8 10^3/ul (4.5-11.0)
[2017-11-29 07:37] LABS: CALCIUM 8.9 mg/dL (8.4-10.5)
[2017-11-29] MEDS: Potassium Chloride 10 mEq ER Tab PO SCH ×2 (08:41→18:48)
[2017-11-29] MEDS: metOLazone 5 MG TAB PO SCH (10:34)
--- NOTE | 2017-11-29 13:17 | PN ---
DATE: 11/29/2017 SUBJECTIVE: The patient is in bed, in no acute distress, nontoxic. PHYSICAL EXAMINATION: VITAL SIGNS: Temperature is 98, blood pressure is 130/70, respiratory rate 20, heart rate of 75. HEENT: Unremarkable. NECK: Supple. LUNGS: Decreased breath sounds. HEART: Normal S1 and S2. ABDOMEN: Soft. LABORATORY DATA: Laboratory examination reveals a white count of 6.8, hemoglobin of 9, platelets of 256. Chemistries reveals a BUN of 31 and creatinine of 1.4. Microbiology is noted. ASSESSMENT AND PLAN: This is a 77-year-old male who is seen early this morning, nontoxic, with a history of obesity, body mass index of 34, hypertension, diabetes, chronic obstructive lung disease, prostate cancer, renal insufficiency, admitted with systemic inflammatory response syndrome, negative cultures and received 8 days of doxycycline, with a normal procalcitonin. Patient feels better, currently off of antibiotics. Review of the orders confirms the patient to be off of antibiotics. Dr. Petty's note is reviewed from yesterday. Patient is getting physical therapy at this time. Reji Jane MD
--- NOTE | 2017-11-29 19:44 | PN ---
DATE: SUBJECTIVE: The patient is a 77-year-old, seen and examined, complain of bilateral leg swelling, redness, and itchiness. Denies any nausea or vomiting. I had a discussion with Dr. Gore. The patient has Hemoccult positive. He had scope done 5 years ago history of Blanc's esophagus and plan is to do endoscopy and colonoscopy as an outpatient. PHYSICAL EXAMINATION: GENERAL: Today; he is awake, alert, oriented, and communicative. VITAL SIGNS: He is afebrile, pulse 73, respirations 20, and blood pressure 145/69. LUNGS: Bilateral fair airflow. No rhonchi or crackles. HEART: S1 and S2 audible. ABDOMEN: Soft, obese, and nontender. No rebound. No guarding. NEUROLOGIC: The patient is awake, alert, oriented, and communicative. LABORATORY DATA: WBC 6.8, hemoglobin 9.2, hematocrit 29.3, and platelets of 266. Chemistries; sodium 136, potassium 4.1, chloride 101, CO2 of 27, BUN 31, creatinine 1.4, and blood sugar of 150. ASSESSMENT: 1. Community-acquired pneumonia, failed outpatient treatment. 2. Brief episode of atrial fibrillation during sepsis. 3. Diarrhea resolved secondary to antibiotics. 4. Morbid obesity. 5. Stool Hemoccult positive for gastrointestinal bleed. PLAN: Discussed with Dr. Hart. We will discontinue Eliquis since the recent EKG has no episode of AFib. I also spoke to Dr. Gore. Plan is to do endoscopy and colonoscopy as an outpatient after 4 weeks after all these respiratory symptoms subside. The patient understand that. I will discontinue Eliquis and discharge plan is for tomorrow morning. Joselito Petty MD
--- NOTE | 2017-11-29 20:31 | PN ---
DATE: 11/29/2017 SUBJECTIVE: This patient was seen and elevated earlier today. The patient is comfortable. No further episodes of bleeding. No abdominal pain. PHYSICAL EXAMINATION: VITAL SIGNS: Temperature is 98, pulse is 77, and blood pressure is 154/78. HEENT: Atraumatic and anicteric. NECK: Supple. HEART: S1 and S2 heard. LUNGS: Bilateral air entry present. ABDOMEN: Soft. There is an umbilical hernia reducible at present. EXTREMITIES: Mild edema at present. NEUROLOGIC: Alert, oriented, and moves all the extremities. LABORATORY DATA: Hemoglobin 9.2, hematocrit 28.3, WBC 6.8, and platelets of 266. LFTs are essentially unremarkable. IMPRESSION AND PLAN: This 77-year-old patient admitted with pneumonia, being failed outpatient treatment, being on antibiotics improved and [id number] diabetes mellitus, prostate cancer, and history of atrial fibrillation. The patient was on Eliquis, which has been now discontinued at the present time. The hemoglobin is stable, but stool for occult blood is positive. We would recommend at this time elective esophagogastroduodenoscopy and a colonoscopy. I had detailed discussion with the patient who understood. The patient did have an endoscopy done few years ago in [facility], which had shown some abnormality . He had a colonoscopy at that time was negative. In view of this anemia, occult blood positive, he will benefit from both esophagogastroduodenoscopy and colonoscopy. Meanwhile, we will continue with the PPI, Protonix once daily. We will continue to closely followup. Other comorbidities include diabetes mellitus, dyslipidemia, hypertension, chronic obstructive pulmonary disease, and prostate cancer. Miladis Gore MD GM
[2017-11-30] MEDS: Albuterol-Ipratrop 3 mg / 0.5 (3 ml) UD IH SCH ×3 (04:36→14:35)
[2017-11-30] MEDS: Pantoprazole 40 mg EC Tab PO SCH (05:47)
[2017-11-30] MEDS: Insulin Reg-MEDIUM-Coverage SC SCH ×2 (06:30→12:52)
[2017-11-30] MEDS: Potassium Chloride 10 mEq ER Tab PO SCH (08:18)
[2017-11-30] MEDS: metOLazone 5 MG TAB PO SCH (10:27)
[2017-11-30 11:32] VITALS: TEMP 97.1; O2SAT 98
[2017-11-30 14:30] VITALS: BP 153/83; PULSE 75
--- NOTE | 2017-11-30 18:42 | PN ---
DATE: 11/30/2017 SUBJECTIVE: This patient was seen and evaluated earlier today. The patient is comfortable. PHYSICAL EXAMINATION: VITAL SIGNS: Temperature is 97.1, blood pressure is 153/83, pulse 75. HEENT: Atraumatic, anicteric. NECK: Supple. HEART: S1 and S2 heard. LUNGS: Bilateral air entry present. ABDOMEN: Soft. There is a reducible umbilical hernia present. LABORATORY DATA: No recent labs today. IMPRESSION: This 77-year-old patient with a history of prostate cancer admitted with pneumonia, failed outpatient therapy, transient atrial fibrillation, was on Eliquis which has been discontinued, found to be anemic with guaiac-positive stool. His hemoglobin now stable, presently on PPI. Advised to continue that. The patient did have an endoscopy and a colonoscopy done 4 years ago at [facility]. He was told to have some abnormalities in the endoscopic finding, did not have any follow up. The patient would benefit from the outpatient endoscopy and also colonoscopic evaluation. We will defer at least for 2 to 3 weeks until he is optimized from this recent respiratory infection. The patient was advised to follow up with the primary physician. Advised GI followup. Thank you very much for allowing us to participate in the care of the patient. Miladis Gore MD
--- NOTE | 2017-11-30 18:57 | PN ---
DATE: 11/30/2017 SUBJECTIVE: The patient is in bed, in no acute distress, and nontoxic. OBJECTIVE: VITAL SIGNS: Temperature is 98, blood pressure is 120/70, and respiratory rate is 16. HEENT: Unremarkable. NECK: Supple. LUNGS: Decreased breath sounds. HEART: Normal S1 and S2. ABDOMEN: Soft and nontender. LABORATORY DATA: Reveals the patient's white count of 6.8, hemoglobin of 9, and platelets of 266. Chemistries are noted. Review of orders reveals the patient to be on off of antibiotics. ASSESSMENT AND PLAN: This is a 77-year-old male who was seen early this morning in room 304 who is nontoxic, history of obesity, body mass index of 34, hypertensive, diabetes, chronic obstructive lung disease, prostate cancer, renal insufficiency, admitted with systemic inflammatory response syndrome, negative cultures, received 8 days of doxycycline, normal procalcitonin, and the patient feels better. Currently off of antibiotics. However, he is at risk for developing nosocomial infections and we will follow closely with you. The patient's is at bedside early this morning. Reji Jane MD
--- NOTE | 2017-12-01 04:30 | DS ---
HISTORY OF PRESENT ILLNESS AND HOSPITAL COURSE: The patient is a 77-year-old who came to emergency room because of cough, congestion, leukocytosis. He was being treated by Dr. Hartman for cough and congestion. He was given two rounds of Zithromax that resulted in diarrhea. He was having increasing weakness, perfused diarrhea, so he came to ER for further evaluation. He was found to have bilateral lower lobe infiltrate, has been on IV antibiotic. Upon arrival, he was in AFib. He was given beta blockers and was started on Eliquis. Once his hypoxia improved, he was in sinus rhythm. He has been on IV antibiotic, doing well, transferred to TCU for rehab and completion of course of antibiotic. PHYSICAL EXAMINATION: On examination today; GENERAL: He is awake, alert, oriented, able to communicate. VITAL SIGNS: Afebrile, pulse 75, respirations 20, blood pressure 146/75. LUNGS: Bilateral fair airflow. No rhonchi or crackle. HEART: S1 and S2 audible. Regular rate and rhythm. ABDOMEN: Soft, nontender. No rebound. No guarding. NEUROLOGIC: He is awake, alert, oriented, communicative. EXTREMITIES: Bilateral leg +2 edema. His stool for Hemoccult is positive. ASSESSMENT AND PLAN: 1. Status post community-acquired pneumonia, failed outpatient treatment. 2. Brief episode of atrial fibrillation. 3. Hypertension. 4. History of gastrointestinal bleed. The patient states his last upper endoscopy and colonoscopy was 5 years ago and was totally embarrassed. He need to have a repeat endoscopy and colonoscopy. Dr. Gore was consulted patient since patient just recovered from pneumonia. He should recover for 3-4 weeks and plan is to have him evaluated by Dr. Gore in 3-4 weeks. The patient was given instructions to follow with Dr. Hart in [address] Gore in 4 weeks to have endoscopy and colonoscopy done and he need to be evaluated by Dr. Hart to evaluate him for atrial fibrillation that he need long-term anticoagulation or not. The patient was given an information of Dr. Gore and Dr. Hart and upon discharge, he need to be on his usual medication that include amlodipine 10 mg daily, valsartan 320 daily, Uloric, Flomax 0.4 daily, sildenafil as needed, Prandin 0.5 b.i.d., potassium 30 mEq twice a day, Protonix 40 mg daily, Tradjenta 5 mg daily, insulin as needed. He is on glimepiride 4 mg twice a day, Lasix 40 mg daily. He will follow with his PMD. Joselito Petty MD
== END 2017-11-30 20:16 | disposition home or self-care (01) | DRG 194 ==
LOC: TRCU 23:02
PROVIDERS: ADMIT Internal Medicine; ATTEND Internal Medicine
PROC: F07Z9ZZ Gait Training/Functional Ambulation Treatment (ICD-10-PCS; principal; 2017-11-23)
PROC: F07M6ZZ Therapeutic Exercise Treatment of Musculoskeletal System - Whole Body (ICD-10-PCS; 2017-11-23)
PROC: F08Z1ZZ Dressing Techniques Treatment (ICD-10-PCS; 2017-11-23)
PROC: F08Z2ZZ Grooming/Personal Hygiene Treatment (ICD-10-PCS; 2017-11-23)
DX: J18.9 Pneumonia, unspecified organism (principal); K92.2 Gastrointestinal hemorrhage, unspecified; I48.0 Paroxysmal atrial fibrillation; I48.2 Chronic atrial fibrillation; E66.01 Morbid (severe) obesity due to excess calories; R65.10 Systemic inflammatory response syndrome (SIRS) of non-infectious origin without acute organ dysfunction; J44.0 Chronic obstructive pulmonary disease with (acute) lower respiratory infection; D64.9 Anemia, unspecified; E11.9 Type 2 diabetes mellitus without complications; I10 Essential (primary) hypertension; Z85.46 Personal history of malignant neoplasm of prostate; Z85.820 Personal history of malignant melanoma of skin; Z88.0 Allergy status to penicillin; Z79.01 Long term (current) use of anticoagulants; R09.02 Hypoxemia; N28.9 Disorder of kidney and ureter, unspecified; K22.70 Barrett's esophagus without dysplasia; F17.200 Nicotine dependence, unspecified, uncomplicated; E78.5 Hyperlipidemia, unspecified; Z68.34 Body mass index [BMI] 34.0-34.9, adult; R19.7 Diarrhea, unspecified; T36.95XA Adverse effect of unspecified systemic antibiotic, initial encounter

== ENCOUNTER 2018-08-28 11:46 | Inpatient (IN) | payer MEDICARE, OTHER ==
[2018-08-28] MEDS ORDERED: Albuterol-Ipratrop 3 mg / 0.5 (3 ml) UD IH STA (12:07)
--- NOTE | 2018-08-28 12:09 | ED PDOC ---
Arrival/HPI - General Chief Complaint: Shortness Of Breath Time Seen by Provider: 08/28/18 12:03 Historian: Patient - History of Present Illness Narrative History of Present Illness (Text): 08/28/18 12:07 78 year old male, whose past medical history includes mild renal insufficiency, history of melanoma, history of basal cell carcinoma, hypertension, NIDDM, and COPD, presents to the emergency department from PMD office complaining of shortness of breath associated with cough for the past 2 weeks. Patient reports the shortness of breath with exertion which is relieved when sitting down. Patient quit smoking 20 years ago. He also reports 2 stress test done in the past which resulted in normal findings and denies any recent change in medication. Patient also states he currently takes a water pill. Patient denies any fever, chills, chest pain, nausea, abdominal pain, vomiting, diarrhea, urinary symptoms, back pain, neck pain, headache, dizziness, or any other complaints. PMD: Dr. Jose Cardiolgoist: Dr. Hart Erp Developer: Dr. Boyce Time/Duration: Other (2 weeks) Symptom Onset: Gradual Symptom Course: Unchanged Activities at Onset: Light Context: Home Past Medical History - Provider Review Nursing Documentation Reviewed: Yes - Cardiac Hx Hypertension: Yes - Pulmonary Hx Chronic Obstructive Pulmonary Disease (COPD): Yes - Neurological HX Cerebrovascular Accident: No - HEENT Hx HEENT Disorder: (READING,TONSILLECTOMY) - Renal Hx Renal Failure: No - Endocrine/Metabolic Hx Diabetes Mellitus Type 2: Yes - Hematological/Oncological Hx Blood Disorders: No Hx AIDS: No Hx Anemia: Yes Hx Cancer: Yes (Prostate, Melanoma) Hx Chemotherapy: No Hx Cirrhosis: No Hx Hemophilia: No Hx Hepatitis A: No Hx Hepatitis B: No Hx Hepatitis C: No Hx Metastasis: No Hx Shingles: No Hx Sickle Cell Disease: No Hx Unexplained Bleeding: No - Integumentary Hx Dermatological Disorder: Yes Hx Basal Cell Carcinoma: Yes Hx Eczema: Yes Hx Melanoma: Yes Hx Psoriasis: No Hx Squamous Cell Carcinoma: Yes - Musculoskeletal/Rheumatological Hx Falls: No - Gastrointestinal Hx Gastrointestinal Disorders: No - Genitourinary/Gynecological Hx Genitourinary Disorders: Yes (Kidney dysfunction) - Psychiatric Hx Depression: No Hx Emotional Abuse: No Hx Physical Abuse: No Hx Substance Use: No - Surgical History Hx Amputation: No Hx Appendectomy: No Hx Cardiac Catheterization: No Hx Cholecystectomy: No Hx Coronary Stent: No Hx Gastric Bypass Surgery: No Hx Hysterectomy: No Hx Joint Replacement: No Hx Kidney Transplant: No Hx Liver Transplant: No Hx Mastectomy: No Hx Musculoskeletal Surgery: No Hx Open Heart Surgery: No Hx Orthopedic Surgery: No Hx Splenectomy: No Hx Valve Replacement: No - Anesthesia Hx Anesthesia: Yes - Suicidal Assessment Feels Threatened In Home Enviroment: No Family/Social History - Physician Review Nursing Documentation Reviewed: Yes Family/Social History: No Known Family HX Smoking Status: Former Smoker Hx Alcohol Use: No Hx Substance Use: No Hx Substance Use Treatment: No Allergies/Home Meds Allergies/Adverse Reactions: Allergies atorvastatin Allergy (Verified 11/28/17 07:19) RASH Penicillins Allergy (Verified 11/28/17 07:19) PAIN procaine Allergy (Verified 11/28/17 07:19) RASH propoxyphene Allergy (Verified 11/28/17 07:19) RASH darvon Allergy (Severe, Uncoded 11/22/17 23:18) PAIN palpitations novacaine Allergy (Severe, Uncoded 11/22/17 23:18) PAIN palpitations Home Medications: Home Meds Medication Instructions Recorded Confirmed Aspirin 81 mg PO DAILY 06/30/12 11/18/17 Bethanechol Chloride [Bethanechol] 25 mg PO BID 06/30/12 11/18/17 Carvedilol [Coreg] 12.5 mg PO BID 06/30/12 11/18/17 Doxercalciferol [Hectorol] 2.5 mcg PO DAILY 06/30/12 11/18/17 Eplerenone [Inspra] 25 mg PO DAILY 06/30/12 11/18/17 Ezetimibe [Zetia] 10 mg PO DAILY 06/30/12 11/18/17 Finasteride 5 mg PO DAILY 06/30/12 11/18/17 Furosemide 20 mg PO BID 06/30/12 11/18/17 Glimepiride 2 mg PO BID 06/30/12 11/18/17 Nisoldipine [Sular] 25.5 mg PO DAILY 06/30/12 11/18/17 Sildenafil Citrate [Viagra] 100 mg PO PRN PRN 06/30/12 11/18/17 Tamsulosin [Flomax] 0.4 mg PO BID 06/30/12 11/18/17 Acarbose [Precose] 50 mg PO TID 11/18/17 11/18/17 Chlorthalidone 0.5 tab PO MWF 11/18/17 11/18/17 Colchicine 0.6 PO DAILY PRN 11/18/17 Ergocalciferol (Vitamin D2) PO MON 11/18/17 [Vitamin D2] Icosapent Ethyl [Vascepa] 1 gm PO BID 11/18/17 11/18/17 Irbesartan [Avapro] 300 mg PO MWF 11/18/17 11/18/17 Linagliptin [Tradjenta] 5 mg PO DAILY 11/18/17 11/18/17 Omeprazole 40 DAILY 11/18/17 Repaglinide [Prandin] 0.5 mg PO DAILY 11/18/17 11/18/17 Uloric 80 PRN PRN 11/18/17 Review of Systems - Physician Review All systems were reviewed & negative as marked: Yes - Review of Systems Constitutional: absent: Fevers, Other (Chills) Respiratory: SOB, Cough Cardiovascular: JAY. absent: Chest Pain Gastrointestinal: absent: Abdominal Pain, Diarrhea, Nausea, Vomiting Genitourinary Male: absent: Dysuria, Frequency, Hematuria Musculoskeletal: absent: Back Pain, Neck Pain Neurological: absent: Headache, Dizziness Physical Exam Vital Signs Reviewed: Yes Vital Signs Temp Pulse Resp BP Pulse Ox 08/28/18 11:55 98.2 F 79 18 148/92 H 93 L Temperature: Afebrile Blood Pressure: Normal Pulse: Regular Respiratory Rate: Normal Appearance: Positive for: Well-Appearing, Non-Toxic, Comfortable, Other (Hypoxic upon arrival) Pain Distress: None Mental Status: Positive for: Alert and Oriented X 3 - Systems Exam Head: Present: Atraumatic, Normocephalic Pupils: Present: PERRL Extroacular Muscles: Present: EOMI Conjunctiva: Present: Normal Mouth: Present: Moist Mucous Membranes Neck: Present: Normal Range of Motion Respiratory/Chest: Present: Wheezes (Bilateral in the anterior and posterior lung north), Rhonchi (Bilateral in the anterior and posterior lung north). No: Respiratory Distress, Accessory Muscle Use, Retracting, Tachypneic Cardiovascular: Present: Regular Rate and Rhythm, Normal S1, S2. No: Murmurs, Tachycardic Abdomen: Present: Distention. No: Tenderness, Peritoneal Signs Back: Present: Normal Inspection Upper Extremity: Present: Normal Inspection. No: Cyanosis, Edema Lower Extremity: Present: Edema (+1 pitting edema ), Capillary Refill < 2 s Neurological: Present: GCS=15, CN II-XII Intact, Speech Normal Skin: Present: Warm, Dry, Normal Color. No: Rashes Psychiatric: Present: Alert, Oriented x 3, Normal Insight, Normal Concentration Medical Decision Making ED Course and Treatment: 08/28/18 12:07 Impression: 78 year old male presents complaining of shortness of breath worsen on exertion associated with cough for the past 2 weeks. Differential Diagnosis included but are not limited to: CHF exacerbation COPD Pneumonia Plan: -- ABG -- Labs -- CXR -- Duoneb -- Solu-medrol -- Blood Culture -- BIPAP -- Urinalysis -- Reassess and disposition Progress Notes: 08/28/18 13:[address] Petty who is aware and agrees with the plan. Accepts patient into her service. 08/28/18 13:52 Labs reviewed with hyponatremia, elevated creatinine concerning for BANDAR and slight hypoxemia on ABG. Patient tolerating BiPAP without difficulty with BiPaP settings adjusted. - Lab Interpretations I have reviewed the lab results: Yes - RAD Interpretation Narrative RAD Interpretations (Text): PROCEDURE: Chest X-ray Dictator : Karen Heredia MD Report Date : 08/28/2018 12:32:16 IMPRESSION: No acute findings identified. See above. Reverse Unit Operator: Radiologist - EKG Interpretation EKG Interpretation (Text): 08/28/18 11:59 EKG shows NSR at 79 BPM withLAFD, no ST/T elevation. Interpreted by me. Interpreted by ED Physician: Yes Type: 12 lead EKG - Scribe Statement The provider has reviewed the documentation as recorded by the Corieibned Perez Provider Scribe Attestation: All medical record entries made by the Scribe were at my direction and personally dictated by me. I have reviewed the chart and agree that the record accurately reflects my personal performance of the history, physical exam, medical decision making, and the department course for this patient. I have also personally directed, reviewed, and agree with the discharge instructions and disposition. Disposition/Present on Arrival - Present on Arrival Any Indicators Present on Arrival: No History of DVT/PE: No History of Uncontrolled Diabetes: No Urinary Catheter: No History of Decub. Ulcer: No History Surgical Site Infection Following: None - Disposition Have Diagnosis and Disposition been Completed?: Yes Diagnosis: CHF (congestive heart failure), COPD (chronic obstructive pulmonary disease) Disposition Time: 13:52 Patient Plan: Admission Patient Problems: Current Active Problems Problem Status Onset CHF (congestive heart failure) Acute COPD (chronic obstructive pulmonary disease) Acute Condition: FAIR Discharge Instructions (ExitCare): Heart Failure (ED) Referrals: Kostas Jose MD [Primary Care Provider] - Follow up with primary Forms: [employer] ([place])
--- NOTE | 2018-08-28 12:34 | RAD ---
HISTORY: sob COMPARISON: Chest x-ray performed 11/22/17 TECHNIQUE: Chest, one view. FINDINGS: Examination limited by habitus. LUNGS: No focal consolidation. Please note that chest x-ray has limited sensitivity for the detection of pulmonary masses. PLEURA: No significant pleural effusion identified. No definite pneumothorax . CARDIOVASCULAR: Heart size appears top normal. Ectatic aorta. OSSEOUS STRUCTURES: Degenerative changes. VISUALIZED UPPER ABDOMEN: Unremarkable. OTHER FINDINGS: None. IMPRESSION: No acute findings identified. See above.
[2018-08-28 12:51] LABS: ARTERIAL BLOOD GAS HCO3 27.2 mmol/L (21-28); ARTERIAL BLOOD GAS HEMOGLOBIN 11.1 g/dL (11.7-17.4); ARTERIAL BLOOD GAS O2 CAPACITY 15.6 mL/dl (16-24); ARTERIAL BLOOD GAS O2 CONTENT 15.4 ML/dl (15-23); ARTERIAL BLOOD GAS O2 SAT 98.5 % (95-98); ARTERIAL BLOOD GAS PCO2 41 mm/Hg (35-45); ARTERIAL BLOOD GAS PH 7.43 (7.35-7.45); ARTERIAL BLOOD GAS TCO2 28.5 mmol.L (22-28)
[2018-08-28 13:25] LABS: BASO # 0.01 K/mm3 (0.0-2.0); BASO % 0.1 % (0.0-3.0); EOS # 0.3 (0.0-0.7); EOS % 4.7 % (1.5-5.0); GRAN # 5.08 (1.4-6.5); GRAN % 73.2 % (50.0-68.0); HEMOGLOBIN 10.9 g/dL (14.0-18.0); LYMPH # 0.9 (1.2-3.4); LYMPH % 12.9 % (22.0-35.0); MEAN CELL VOLUME 80.7 fl (80.0-105.0); MEAN CORPUSCULAR HGB CONC 33.4 g/dl (31.0-37.0); MONO # 0.6 (0.1-0.6); MONO % 9.1 % (1.0-6.0); RBC 4.04 10^6/uL (3.5-6.1); RED CELL DISTRIBUTION WIDTH 14.3 % (11.5-14.5)
[2018-08-28 13:29] LABS: ALB/GLOB RATIO 1.1 (1.1-1.8); ALBUMIN 3.3 g/dL (3.0-4.8); CALCIUM 8.2 mg/dL (8.4-10.5)
[2018-08-28 13:40] LABS: TROPONIN I 0.01 ng/mL
[2018-08-28 14:12] LABS: URINE BILIRUBIN NEGATIVE (NEGATIVE); URINE BLOOD NEGATIVE (NEGATIVE); URINE GLUCOSE (UA) 100 mg/dL (NEGATIVE); URINE LEUKOCYTE ESTERASE NEGATIVE Leu/uL (NEGATIVE); URINE PROTEIN TRACE mg/dL (<30 mg/dL); URINE UROBILINOGEN 0.2 E.U./dL (<1 E.U./dL)
[2018-08-28 14:16] LABS: URINE APPEARANCE CLEAR (CLEAR); URINE COLOR YELLOW (YELLOW)
[2018-08-28 14:17] LABS: URINE EPITHELIAL CELLS 0 - 2 /hpf (0-5); URINE RBC 0 - 2 /hpf (0-2); URINE WBC 0 - 2 /hpf (0-6)
[2018-08-28 14:18] LABS: URINE BACTERIA SMALL (NEG)
--- NOTE | 2018-08-28 15:21 | CARD ---
APPROVED REPORT Date of service: 08/28/2018 EKG Measurement Heart [id number] <Conclusion> Normal sinus rhythm Left anterior fascicular block PRWP STTW changes
[2018-08-28] MEDS ORDERED: Albuterol-Ipratrop 3 mg / 0.5 (3 ml) UD IH PRN (17:16)
[2018-08-28] MEDS: Potassium Chloride 10 mEq ER Tab PO SCH (17:57)
[2018-08-28] MEDS ORDERED: Potassium Chloride 10 mEq ER Tab PO SCH (18:00)
[2018-08-28] MEDS: Albuterol-Ipratrop 3 mg / 0.5 (3 ml) UD IH SCH (20:00)
--- NOTE | 2018-08-28 20:51 | PCM.SEPTIC ---
<Michelet Isabel - Last Filed: 08/28/18 20:51> Sepsis Progress Note - Reassessment Type Date of Evaluation: 08/28/18 Time of Evaluation: 20:50 Reassessment Type: Non-invasive reassessment - Non Invasive Reassessment Were the most recent vital sign reviewed: Yes Vital Sign (Latest): Temp Pulse Resp BP Pulse Ox 98.4 F 89 18 151/69 H 96 08/28/18 14:35 08/28/18 19:35 08/28/18 18:34 08/28/18 19:35 08/28/18 18:34 Cardiovascular: Yes: Regular Rate, Rhythm Respiratory: Yes: Wheezing. No: Accessory Muscle Use, Stridor Capillary Refill: Normal (Less than 2 sec) Pulses: Normal Radial, Normal Dorsalis Pedis, Normal Posterior Tibialis Skin: Normal Color, Warm - Invasive Reassessment (complete 2 of 4) Was a Central Venous Pressure Measurement obtained within 6 Hours after the presentation of septic shock: No Was a central venous oxygen measurement obtained within 6 hours after the presentation of septic shock: No Was a bedside cardiovascular ultrasound performed within 6 hours after the presentation of septic shock: No Was a passive leg raise performed or was a fluid challenge performed within 6 hrs of the initial fluid bolus: No Passive Leg Raise Result: Not Applicable Fluid Challenge performed: Yes <Nishi Lagos - Last Filed: 08/29/18 00:46> Sepsis Progress Note - Non Invasive Reassessment Vital Sign (Latest): Temp Pulse Resp BP Pulse Ox 98.4 F 95 H 18 166/81 H 96 08/28/18 22:35 08/28/18 22:35 08/28/18 22:35 08/28/18 22:35 08/28/18 18:34 Attending/Attestation - Attestation I have personally seen and examined this patient.: No I have fully participated in the care of the patient.: Yes I have reviewed all pertinent clinical information, including history, physical exam and plan: Yes
[2018-08-28 21:43] LABS: HDL CHOLESTEROL 28 mg/dL (29-60)
[2018-08-28 21:54] LABS: LDL CHOLESTEROL 91 mg/dL (0-129)
[2018-08-28 22:07] LABS: B-TYPE NATRIURETIC PEPTIDE 1470 pg/mL (0-450); TROPONIN I < 0.01 ng/mL
[2018-08-28] MEDS: MethylPREDNISolone 40 mg Vial IV SCH (22:43)
[2018-08-28] MEDS: Insulin Lispro (HUMAlog) HIGH Coverage SC SCH (22:44)
[2018-08-28 23:18] VITALS: BMI 34.3
[2018-08-28] MEDS ORDERED: Influenza Vaccine 60 mcg/0.5 mL SYR (4YR UP) IM ONE (23:19)
[2018-08-28] MEDS ORDERED: Pneumococcal 23-Valent Vaccine IM ONE (23:19)
[2018-08-29] MEDS: Albuterol-Ipratrop 3 mg / 0.5 (3 ml) UD IH SCH ×4 (02:05→19:16)
--- NOTE | 2018-08-29 02:23 | HP ---
HISTORY OF PRESENT ILLNESS: The patient is 78 years old, seen and examined while in the emergency room, came to emergency room because of increasing shortness of breath, unable to catch up his breath, has been going on for a week and a half or so and he was trying to take his medication with no significant relief, so he came to emergency room for further evaluation. Denies any fever or chills. No history of hemoptysis. No hematemesis. No abdominal pain. He does not have any chest pain either. Patient states he was seen by Dr. Jose today and he advised him to come to emergency room. PAST MEDICAL HISTORY: Significant for; 1. COPD. 2. Hypertension. 3. Renal insufficiency. 4. History of melanoma and basal cell carcinoma resection. 5. Eqg-xittqht-kacdknecl diabetes. ALLERGIES: PATIENT IS ALLERGIC TO; 1. ATORVASTATIN. 2. PENICILLIN. 3. PROCAINE. 4. PROPOXYPHENE. 5. DARVON. 6. NOVOCAIN. MEDICATIONS: At home, he is on amlodipine 10 mg daily, Flomax 0.4 daily, Prandin 0.5 three times a day, potassium 10 mEq daily, Protonix 40 mg daily, Zofran p.r.n., glimepiride 4 mg twice a day, finasteride 5 mg daily, carvedilol 12.5 twice a day, bethanechol, aspirin 81 daily, Eliquis 5 mg twice a day, Tylenol as needed, Diovan one 320 daily, Uloric 80 mg daily, tamsulosin 0.4 daily, Viagra 100 mg as needed, omeprazole 40 mg daily. He is on insulin and glimepiride and also he takes Zetia, vitamin D and nebulizer treatment. SOCIAL HISTORY: He used to be smoker in the past. REVIEW OF SYSTEMS: Significant for cough, congestion and shortness of breath. PHYSICAL EXAMINATION: GENERAL: He is awake, alert, oriented, communicative. VITAL SIGNS: He is afebrile, pulse 73, respirations 18, blood pressure 146/85. LUNGS: Bilateral fair airflow. Few expiratory rhonchi, basilar crackles. HEART: S1 and S2 audible. ABDOMEN: Soft, obese, nontender. No rebound. No guarding. NEUROLOGICAL: He is awake, alert, oriented, communicative. EXTREMITIES: Bilateral legs, +2 edema. LABORATORY EXAM: WBC is 7, hemoglobin 10.9, hematocrit 32.6, platelet 195. Chemistry: Sodium 131, potassium 3.9, chloride 96, CO2 of 30, BUN 29, creatinine 1.6. Blood sugar of 152. Calcium 8.2, magnesium 2.3. LFTs are within normal limit. Alk phos 146. Urine shows trace protein and positive glucose. DIAGNOSTIC DATA: X-ray of chest shows no acute finding. EKG shows normal sinus rhythm. ASSESSMENT: 1. Paroxysmal atrial fibrillation. 2. Congestive heart failure. 3. Chronic obstructive pulmonary disease exacerbation. 4. Asthmatic bronchitis. 5. Ytv-ajgraau-oqhrdouht diabetes. 6. Morbid obesity. 7. History of basal cell carcinoma. PLAN: Patient will be admitted on telemetry. We will start him on IV steroids. Start him on nebulizer treatment. We will start him on diuretics. We will follow up his electrolytes. Monitor his blood sugar. Dr. Grey has been consulted also. Joselito Petty MD
[2018-08-29] MEDS: Pantoprazole 40 mg EC Tab PO SCH ×2 (05:29→05:30)
[2018-08-29 07:33] LABS: BASO # 0.01 K/mm3 (0.0-2.0); BASO % 0.2 % (0.0-3.0); GRAN # 5.54 (1.4-6.5); GRAN % 86.4 % (50.0-68.0); HEMOGLOBIN 11.3 g/dL (14.0-18.0); LYMPH # 0.6 (1.2-3.4); LYMPH % 9.7 % (22.0-35.0); MEAN CELL VOLUME 80.4 fl (80.0-105.0); MEAN CORPUSCULAR HEMOGLOBIN 26.7 pg (25.0-35.0); MEAN CORPUSCULAR HGB CONC 33.2 g/dl (31.0-37.0); MEAN PLATELET VOLUME 10.4 fl (7.0-11.0); MONO # 0.2 (0.1-0.6); MONO % 3.7 % (1.0-6.0); RBC 4.23 10^6/uL (3.5-6.1); RED CELL DISTRIBUTION WIDTH 14.3 % (11.5-14.5); WHITE BLOOD COUNT 6.4 10^3/ul (4.5-11.0)
[2018-08-29 07:50] LABS: ALB/GLOB RATIO 1.2 (1.1-1.8); ALBUMIN 3.4 g/dL (3.0-4.8); CALCIUM 8.3 mg/dL (8.4-10.5)
[2018-08-29 08:00] LABS: FREE T4 1.23 ng/dL (0.78-2.19)
[2018-08-29] MEDS: Insulin Lispro (HUMAlog) HIGH Coverage SC SCH ×4 (08:40→22:00)
[2018-08-29] MEDS: MethylPREDNISolone 40 mg Vial IV SCH ×2 (09:04→21:54)
[2018-08-29] MEDS: Potassium Chloride 10 mEq ER Tab PO SCH ×2 (09:05→17:44)
--- NOTE | 2018-08-29 11:56 | CON ---
DATE: 08/29/2018 CONSULTATION INDICATION: Shortness of breath. HISTORY OF PRESENT ILLNESS: This is a 78-year-old man known to me, admitted with progressive shortness of breath and cough. He was seen by Dr. Jose in the office and sent to the emergency room. Subsequently, he was admitted to telemetry with exacerbation of COPD, possible CHF. He has a recent history of pneumonia and was admitted in 11/2017. He had paroxysmal atrial fibrillation at that time. Today he is resting comfortably in bed with a BiPAP mask. His is at the bedside. There is no chest pain, syncope, palpitation, claudication, hemoptysis, abdominal pain, nausea, vomiting, diarrhea, constipation, melena. PAST MEDICAL HISTORY: Notable for paroxysmal atrial fibrillation, hypertension, diabetes, hyperlipidemia, chronic kidney disease, COPD, recent pneumonia, BPH, skin cancers including basal cell cancer and melanoma resections, gout. SOCIAL HISTORY: He is a former smoker. There is no history of rheumatic fever, myocardial infarction, stroke or TIA. MEDICATIONS AT THE TIME OF ADMISSION: Include amlodipine, Flomax, Prandin, potassium, Protonix, Zofran glimepiride, finasteride, carvedilol, bethanechol, aspirin, Eliquis, Tylenol, Diovan, Uloric, Flomax, omeprazole, Zetia, vitamin D, chlorthalidone, Sular, Advair, Avapro, Hectorol, Inspra, Precose, Proscar, Stiolto, Tradjenta. ALLERGIES: HE NOTES ALLERGIES TO SEVERAL MEDICATIONS INCLUDING PENICILLIN, PROCAINE, PROPOXYPHENE, NOVOCAIN, LIPITOR. SOCIAL HISTORY: He lives at home with his . He is ambulatory, but limited. He is a former smoker. He does not drink alcohol significantly. FAMILY HISTORY: Noncontributory. REVIEW OF SYSTEMS: A 10-point review of systems is otherwise unremarkable except as noted above. PHYSICAL EXAMINATION: GENERAL: He is a well-developed elderly male with a BiPAP mask on, on telemetry, in no acute distress. VITAL SIGNS: Sinus rhythm is 67 beats per minute, afebrile. Blood pressure 182/83, respirations 18-20, O2 sat 96-100% on BiPAP mask. HEENT: Reveals no neck vein distention, thyromegaly, carotid bruit. Mucous membranes moist. Conjunctiva pink. NECK: Supple. LUNGS: Lung north, scattered rhonchi. HEART: Revealed normal first and second heart sounds which was somewhat distant. ABDOMEN: Soft. Bowel sounds present. No mass, organomegaly, tenderness, rebound, guarding. No CVA tenderness. No palpable abdominal aortic aneurysm. EXTREMITIES: Revealed no cyanosis, clubbing. There is [id number] lower extremity edema which is somewhat chronic appearing. NEUROLOGIC: He is awake, alert, oriented. SKIN: Warm and dry. No rash or cellulitis. PSYCHIATRIC: Normal as to mood and affect. LABORATORY AND IMAGING: The EKG demonstrates regular sinus rhythm, left anterior hemiblock, poor R-wave progression. No acute changes or change from a prior EKG. Chest x-ray reveals no acute findings. White count normal, hemoglobin 11.3, hematocrit 34, platelet count normal. Blood gas is noted. Electrolytes, BUN, creatinine notable for BUN 31, creatinine 1.5, blood sugars in the 200-300 range. Troponin negative. BNP 1470. LFTs mildly elevated, cholesterol 162, LDL 91, triglycerides 176, lipase normal. Thyroid functions normal. Urinalysis is noted. IMPRESSION: Mason Davila is a 78-year-old man admitted with shortness of breath, probably exacerbation of chronic obstruction of pulmonary disease. He has a history of multiple medical problems with pneumonia in 11/2017, paroxysmal atrial fibrillation, hypertension, diabetes, hyperlipidemia, chronic kidney disease, benign prostatic hyperplasia and gout. At this time, I agree with current plans. He has been cultured. He is getting antibiotics, respiratory treatments, continuous positive airway pressure. I will continue his cardiac medications including Coreg, aspirin, Eliquis, amlodipine. He had a dose of IV Lasix. I would switch that to p.o. He can be out of bed to chair with PT. We will review his old records. An echocardiogram in 11/2017 revealed normal left ventricular function, mild aortic stenosis, mild aortic insufficiency and moderate tricuspid regurgitation. I will follow along with you. I will make additional recommendations based on his clinical course. Mele Hart MD GM
--- NOTE | 2018-08-29 14:14 | PN ---
DATE: 08/29/2018 SUBJECTIVE: The patient is 78 years old, seen and examined, less shortness of breath. He states he feels better. PHYSICAL EXAMINATION: VITAL SIGNS: He is afebrile, pulse 83, respirations 18, blood pressure 165/77. LUNGS: Bilateral expiratory rhonchi. Soft crackle at bases. HEART: S1 and S2 audible. ABDOMEN: Soft, obese, nontender. No rebound. No guarding. NEUROLOGICAL: The patient is awake, alert, oriented, able to communicate. EXTREMITIES: Bilateral leg, +1 edema. LABORATORY EXAM: WBC 6.4, hemoglobin 11.3, hematocrit 34, platelet 210. Chemistry: Sodium 133, potassium 4.8, chloride 97, CO2 of 27, BUN 31, creatinine 1.5, blood sugar of 237. His x-ray chest has no acute findings. ASSESSMENT; 1. Chronic obstructive pulmonary disease exacerbation. 2. Congestive heart failure. 3. Morbid obesity. 4. History of atrial fibrillation, currently in sinus rhythm. 5. Noninsulin-dependent diabetes. 6. Benign prostatic hypertrophy. PLAN: We will continue the patient on current medications. We will continue him on nebulizer treatment. He is on aspirin. He is on Flomax. I will continue him on Lasix. I will order for CT of the chest to rule out underlying pneumonia. We will continue cardiac monitoring for now. We will follow up the patient in the a.m. Joselito Petty MD
--- NOTE | 2018-08-29 14:58 | CT ---
Date of service: 08/29/2018 PROCEDURE: CT Chest without contrast HISTORY: sob COMPARISON: None available. TECHNIQUE: Contiguous axial images were obtained through the chest without intravenous contrast enhancement. Sagittal and coronal reconstructions were performed. Radiation dose (DLP): 731.3 mGy-cm. This CT exam was performed using one or more of the following dose reduction techniques: Automated exposure control, adjustment of the mA and/or kV according to patient size, and/or use of iterative reconstruction technique. FINDINGS: LUNGS: Tree-in-bud opacities in the right lower and middle lobes. 2 mm right apical nodule (series 3, image 13). 3 mm left apical nodule (series 3, image 15). Visualized airway clear. MEDIASTINUM: Unremarkable thoracic aorta. No aneurysm. Cardiomegaly. Coronary arterial and valvular calcifications. Main pulmonary artery unremarkable. No vascular congestion. No lymphadenopathy. PLEURA: No pleural fluid. No pneumothorax. BONES: No fracture. Degenerative changes. No destructive lesion. UPPER ABDOMEN: Grossly unremarkable. OTHER FINDINGS: None. IMPRESSION: Tree-in-bud opacities in the right lower and middle lobes, likely infectious/inflammatory in etiology. Less than 6 mm biapical pulmonary nodules. Twelve month CT follow-up can be obtained in high-risk patient.
[2018-08-30] MEDS: Albuterol-Ipratrop 3 mg / 0.5 (3 ml) UD IH SCH ×4 (01:00→19:40)
[2018-08-30] MEDS: Pantoprazole 40 mg EC Tab PO SCH (06:42)
--- NOTE | 2018-08-30 07:34 | CP.PCM.PN ---
Subjective - Date & Time of Evaluation Date of Evaluation: 08/30/18 Time of Evaluation: 07:00 - Subjective Subjective: Stable on 2R. He feels better. No CP or SOB. The cough is better. V/S noted. RSR PE: Lungs: rhonchi Cor.: S1S2 Abd.: soft Ext.: + edema Neuro.: alert Labs, BS 's noted. BC X2 NG at [address] Chest noted. Objective - Vital Signs/Intake and Output Vital Signs (last 24 hours): Temp Pulse Resp BP Pulse Ox 97.5 F L 71 20 178/86 H 97 08/30/18 00:00 08/30/18 02:00 08/30/18 00:00 08/30/18 00:00 08/30/18 00:00 Intake and Output: 08/30/18 08/30/18 06:59 18:59 Intake Total 0 Output Total 300 Balance -300 - Medications Medications: Current Medications Acetaminophen (Tylenol 325mg Tab) 650 mg PO Q6H PRN PRN Reason: Fever >100.4 F Albuterol/Ipratropium (Duoneb 3 Mg/0.5 Mg (3 Ml) Ud) 3 ml IH Q2H PRN PRN Reason: Shortness of Breath Albuterol/Ipratropium (Duoneb 3 Mg/0.5 Mg (3 Ml) Ud) 3 ml IH [id number] [facility] Last Admin: 08/30/18 01:00 Dose: 3 ml Amlodipine Besylate (Norvasc) 10 mg PO DAILY [facility] Last Admin: 08/29/18 09:05 Dose: 10 mg Aspirin (Ecotrin) 81 mg PO DAILY [facility] Last Admin: 08/29/18 09:05 Dose: 81 mg Bethanechol Chloride (Urecholine) 25 mg PO BID [facility] Last Admin: 08/29/18 17:46 Dose: 25 mg Carvedilol (Coreg) 12.5 mg PO BID [facility] Last Admin: 08/29/18 17:44 Dose: 12.5 mg Finasteride (Proscar) 5 mg PO DAILY [facility] Last Admin: 08/29/18 09:03 Dose: 5 mg Finasteride (Proscar) 5 mg PO DAILY [facility] Last Admin: 08/29/18 09:04 Dose: Not Given Furosemide (Lasix) 40 mg IVP DAILY [facility] Last Admin: 08/29/18 09:06 Dose: 40 mg Furosemide (Lasix) 40 mg PO DAILY [facility] Glimepiride (Amaryl) 4 mg PO BID [facility] Last Admin: 08/29/18 17:45 Dose: Not Given Insulin Human Lispro (Humalog High) 0 units SC ACHS [facility]; Protocol Last Admin: 08/29/18 22:00 Dose: Not Given Methylprednisolone (Solu-Medrol) 30 mg IV Q12 [facility] Last Admin: 08/29/18 21:54 Dose: 30 mg Ondansetron HCl (Zofran Inj) 4 mg IVP Q6H PRN PRN Reason: Nausea/Vomiting Pantoprazole Sodium (Protonix Ec Tab) 40 mg PO 0630 [facility] Last Admin: 08/30/18 06:42 Dose: 40 mg Pantoprazole Sodium (Protonix Ec Tab) 40 mg PO 0630 [facility] Last Admin: 08/29/18 05:30 Dose: Not Given Potassium Chloride (Klor-Con 10) 10 meq PO BID [facility] Last Admin: 08/29/18 17:44 Dose: 10 meq Repaglinide (Prandin) 0.5 mg PO DAILY [facility] Last Admin: 08/29/18 09:04 Dose: 0.5 mg Tamsulosin HCl (Flomax) 0.4 mg PO BID [facility] Last Admin: 08/29/18 17:44 Dose: 0.4 mg - Labs Labs: 08/29/18 06:30 08/29/18 06:30 Assessment and Plan - Assessment and Plan (Free Text) Assessment: Dyspnea, Cough COPD with decompensation, R/O pneumonia, R/O CHF MARILU PAF HBP HLD CKD BPH Skin cancers: basal cell, melanoma Former Smoker Echo 11/17: Nl LV fx., Mild and AI, Mod. TR Plan: AM labs pending. Pulm Tx. As per Dr. Petty. OOB/PT CPAP at night Cultures pending Monitor: labs, I/O, sats., BS's, etc.
[2018-08-30] MEDS: Insulin Lispro (HUMAlog) HIGH Coverage SC SCH ×4 (08:45→23:04)
[2018-08-30] MEDS: MethylPREDNISolone 40 mg Vial IV SCH ×2 (09:56→23:09)
[2018-08-30] MEDS: Potassium Chloride 10 mEq ER Tab PO SCH ×2 (09:57→17:43)
[2018-08-30 10:09] LABS: CALCIUM 8.8 mg/dL (8.4-10.5)
[2018-08-30] MEDS ORDERED: levoFLOXacin 500 mg in D5W 500 MG/100 ML BAG IVPB SCH (17:00)
--- NOTE | 2018-08-30 17:23 | PN ---
DATE: 08/30/2018 SUBJECTIVE: The patient is 78 years old, seen and examined, doing better. PHYSICAL EXAMINATION: VITAL SIGNS: The patient is afebrile, pulse 72, respirations 20, blood pressure 156/72. LUNGS: Bilateral good airflow. No rhonchi or crackle. HEART: S1 and S2 audible. ABDOMEN: Soft, obese, nontender. No rebound. No guarding. NEUROLOGICAL: He is awake and alert, able to communicate. EXTREMITIES: Bilateral leg, +1 edema. LABORATORY EXAM: WBC is 6.4, hemoglobin 11.3, hematocrit 34, platelet of 210. Chemistry: Sodium 134, potassium 4.5, chloride 98, CO2 of 27, BUN 39, creatinine 1.5, blood sugar of 270. Blood culture, urine cultures were negative. Had CT scan of the chest done that shows right middle and lower lobe pneumonia. ASSESSMENT: 1. Chronic obstructive pulmonary disease exacerbation. 2. Congestive heart failure. 3. Obstructive sleep apnea. 4. Renal insufficiency. PLAN: Currently, the patient is on IV steroids. We will add an antibiotic. Start him on Levaquin. Continue nebulizer treatment and IV steroid. Request for physical therapy evaluation. We will try to switch to 2 L nasal cannula if he can hold his pulse ox above 92%. Joselito Petty MD
[2018-08-31] MEDS: Albuterol-Ipratrop 3 mg / 0.5 (3 ml) UD IH SCH ×4 (02:30→19:38)
[2018-08-31] MEDS: Pantoprazole 40 mg EC Tab PO SCH ×2 (05:54→20:16)
--- NOTE | 2018-08-31 07:41 | CP.PCM.PN ---
Subjective - Date & Time of Evaluation Date of Evaluation: 08/31/18 Time of Evaluation: 07:00 - Subjective Subjective: Stable on 2R. He feels better. No CP or SOB. The cough is better. V/S noted. RSR PE: Lungs: rhonchi Cor.: S1S2 Abd.: soft Ext.: + edema Neuro.: alert Labs, BS 's noted. 08/30 Cr.= 1.5 BC X2 NG at [address] Chest noted. Objective - Vital Signs/Intake and Output Vital Signs (last 24 hours): Temp Pulse Resp BP Pulse Ox 97.4 F L 74 20 171/87 H 97 08/31/18 06:00 08/31/18 06:00 08/31/18 06:00 08/31/18 06:00 08/31/18 00:00 Intake and Output: 08/31/18 08/31/18 06:59 18:59 Intake Total 0 Output Total 3300 Balance -3300 - Medications Medications: Current Medications Acetaminophen (Tylenol 325mg Tab) 650 mg PO Q6H PRN PRN Reason: Fever >100.4 F Albuterol/Ipratropium (Duoneb 3 Mg/0.5 Mg (3 Ml) Ud) 3 ml IH Q2H PRN PRN Reason: Shortness of Breath Albuterol/Ipratropium (Duoneb 3 Mg/0.5 Mg (3 Ml) Ud) 3 ml IH [id number] [facility] Last Admin: 08/31/18 02:30 Dose: 3 ml Amlodipine Besylate (Norvasc) 10 mg PO DAILY [facility] Last Admin: 08/30/18 09:57 Dose: 10 mg Aspirin (Ecotrin) 81 mg PO DAILY [facility] Last Admin: 08/30/18 09:57 Dose: 81 mg Bethanechol Chloride (Urecholine) 25 mg PO BID [facility] Last Admin: 08/30/18 17:49 Dose: 25 mg Carvedilol (Coreg) 12.5 mg PO BID [facility] Last Admin: 08/30/18 17:49 Dose: 12.5 mg Finasteride (Proscar) 5 mg PO DAILY [facility] Last Admin: 08/30/18 09:58 Dose: 5 mg Finasteride (Proscar) 5 mg PO DAILY [facility] Last Admin: 08/30/18 10:00 Dose: Not Given Furosemide (Lasix) 40 mg PO DAILY [facility] Last Admin: 08/30/18 09:57 Dose: 40 mg Glimepiride (Amaryl) 4 mg PO BID [facility] Last Admin: 08/30/18 17:49 Dose: 4 mg Levofloxacin/Dextrose (Levaquin 500mg) 500 mg in 100 mls @ 100 mls/hr IVPB DAILY [facility]; Protocol Last Admin: 08/31/18 00:33 Dose: 100 mls/hr Insulin Human Lispro (Humalog High) 0 units SC ACHS [facility]; Protocol Last Admin: 08/30/18 23:04 Dose: Not Given Methylprednisolone (Solu-Medrol) 30 mg IV Q12 [facility] Last Admin: 08/30/18 23:09 Dose: 30 mg Ondansetron HCl (Zofran Inj) 4 mg IVP Q6H PRN PRN Reason: Nausea/Vomiting Pantoprazole Sodium (Protonix Ec Tab) 40 mg PO 0630 [facility] Last Admin: 08/31/18 05:54 Dose: 40 mg Potassium Chloride (Klor-Con 10) 10 meq PO BID [facility] Last Admin: 08/30/18 17:43 Dose: Not Given Repaglinide (Prandin) 0.5 mg PO DAILY [facility] Last Admin: 08/30/18 09:57 Dose: 0.5 mg Tamsulosin HCl (Flomax) 0.4 mg PO BID [facility] Last Admin: 08/30/18 17:49 Dose: 0.4 mg - Labs Labs: 08/29/18 06:30 08/30/18 09:30 Assessment and Plan - Assessment and Plan (Free Text) Assessment: Dyspnea, Cough COPD with decompensation, R/O pneumonia, R/O CHF MARILU PAF HBP HLD CKD BPH Skin cancers: basal cell, melanoma Former Smoker Echo 11/17: Nl LV fx., Mild and AI, Mod. TR Plan: Pulm Tx. AB, as per Dr. Petty. OOB/PT CPAP at night Cultures pending Can D/C tel
[2018-08-31] MEDS: Insulin Lispro (HUMAlog) HIGH Coverage SC SCH ×4 (08:11→21:55)
[2018-08-31] MEDS: MethylPREDNISolone 40 mg Vial IV SCH ×2 (10:33→21:02)
[2018-08-31] MEDS: Potassium Chloride 10 mEq ER Tab PO SCH ×2 (11:30→18:37)
[2018-08-31 11:51] LABS: ALB/GLOB RATIO 1.2 (1.1-1.8); ALBUMIN 3.4 g/dL (3.0-4.8); CALCIUM 8.4 mg/dL (8.4-10.5)
--- NOTE | 2018-08-31 18:58 | PN ---
DATE: 08/31/2018 SUBJECTIVE: The patient is 78 years old, seen and examined, doing well, sitting in chair, still has cough, mild shortness of breath. PHYSICAL EXAMINATION VITAL SIGNS: He is afebrile, pulse 76, respirations 20, blood pressure 146/85. LUNGS: Bilateral soft crackle and expiratory rhonchi. HEART: S1 and S2 audible. ABDOMEN: Soft, obese, nontender. No rebound. No guarding. NEUROLOGICAL: The patient is awake, alert, oriented, communicative. EXTREMITIES: Bilateral legs, +1 edema. LABORATORY DATA: Sodium 131, potassium 4.5, chloride 95, CO2 of 27, BUN 47, creatinine 1.5, blood sugar of 209. ASSESSMENT AND PLAN: 1. Chronic obstructive pulmonary disease exacerbation. 2. Congestive heart failure. 3. Right lower lobe and middle lobe pneumonia. 4. Morbid obesity. 5. Obstructive sleep apnea. 6. Paroxysmal atrial fibrillation. The patient had atrial fibrillation in the previous admission because of demand ischemia; however, he has been in regular sinus rhythm. The patient is hemodynamically stable. We will discontinue his telemetry. Continue nebulizer treatment. Continue IV steroids. We will follow up the patient. Joselito Petty MD
[2018-08-31] MEDS: levoFLOXacin 500 mg in D5W 500 MG/100 ML BAG IVPB SCH (21:02)
[2018-09-01] MEDS: Albuterol-Ipratrop 3 mg / 0.5 (3 ml) UD IH SCH ×5 (02:11→20:06)
[2018-09-01] MEDS: Pantoprazole 40 mg EC Tab PO SCH (05:29)
[2018-09-01 07:00] LABS: CALCIUM 8.6 mg/dL (8.4-10.5)
--- NOTE | 2018-09-01 07:20 | CP.PCM.PN ---
Subjective - Date & Time of Evaluation Date of Evaluation: 09/01/18 Time of Evaluation: 07:00 - Subjective Subjective: Stable on 2R. He feels better. No CP or SOB. The cough is better. V/S noted. PE: Lungs: rhonchi Cor.: S1S2 Abd.: soft Ext.: + edema Neuro.: alert Labs, BS 's noted. 08/30 Cr.= 1.4 BC X2 NG at [address] Chest noted. Objective - Vital Signs/Intake and Output Vital Signs (last 24 hours): Temp Pulse Resp BP Pulse Ox 98.0 F 72 18 148/72 97 09/01/18 05:44 09/01/18 05:44 09/01/18 05:44 09/01/18 05:44 09/01/18 05:44 Intake and Output: 09/01/18 09/01/18 06:59 18:59 Intake Total 2560 Output Total 3050 Balance -490 - Medications Medications: Current Medications Acetaminophen (Tylenol 325mg Tab) 650 mg PO Q6H PRN PRN Reason: Fever >100.4 F Albuterol/Ipratropium (Duoneb 3 Mg/0.5 Mg (3 Ml) Ud) 3 ml IH Q2H PRN PRN Reason: Shortness of Breath Albuterol/Ipratropium (Duoneb 3 Mg/0.5 Mg (3 Ml) Ud) [id number] Last Admin: 09/01/18 02:11 Dose: 3 ml Amlodipine Besylate (Norvasc) 10 mg PO DAILY [facility] Last Admin: 08/31/18 10:32 Dose: 10 mg Aspirin (Ecotrin) 81 mg PO DAILY [facility] Last Admin: 08/31/18 10:33 Dose: 81 mg Bethanechol Chloride (Urecholine) 25 mg PO BID [facility] Last Admin: 08/31/18 17:32 Dose: 25 mg Carvedilol (Coreg) 12.5 mg PO BID [facility] Last Admin: 08/31/18 17:32 Dose: 12.5 mg Finasteride (Proscar) 5 mg PO DAILY [facility] Last Admin: 08/31/18 10:33 Dose: 5 mg Finasteride (Proscar) 5 mg PO DAILY [facility] Last Admin: 08/31/18 10:34 Dose: Not Given Furosemide (Lasix) 40 mg PO DAILY [facility] Last Admin: 08/31/18 10:33 Dose: 40 mg Glimepiride (Amaryl) 4 mg PO BID [facility] Last Admin: 08/31/18 17:33 Dose: 4 mg Levofloxacin/Dextrose (Levaquin 500mg) 500 mg in 100 mls @ 100 mls/hr IVPB HS [facility]; Protocol Last Admin: 08/31/18 21:02 Dose: 100 mls/hr Insulin Human Lispro (Humalog High) 0 units SC ACHS [facility]; Protocol Last Admin: 08/31/18 21:55 Dose: 2 unit Methylprednisolone (Solu-Medrol) 30 mg IV Q12 [facility] Last Admin: 08/31/18 21:02 Dose: 30 mg Ondansetron HCl (Zofran Inj) 4 mg IVP Q6H PRN PRN Reason: Nausea/Vomiting Pantoprazole Sodium (Protonix Ec Tab) 40 mg PO 30 [facility] Last Admin: 09/01/18 05:29 Dose: 40 mg Potassium Chloride (Klor-Con 10) 10 meq PO BID [facility] Last Admin: 08/31/18 18:37 Dose: Not Given Repaglinide (Prandin) 2 mg PO WM [facility] Last Admin: 08/31/18 17:32 Dose: 2 mg Tamsulosin HCl (Flomax) 0.4 mg PO BID [facility] Last Admin: 08/31/18 17:33 Dose: 0.4 mg - Labs Labs: 08/29/18 06:30 09/01/18 05:30 Assessment and Plan - Assessment and Plan (Free Text) Assessment: Dyspnea, Cough COPD with decompensation, R/O pneumonia, R/O CHF MARILU PAF HBP HLD CKD BPH Skin cancers: basal cell, melanoma Former Smoker Echo 11/17: Nl LV fx., Mild and AI, Mod. TR Plan: Pulm Tx. AB, as per Dr. Petty. OOB/PT CPAP at night
[2018-09-01] MEDS: Insulin Lispro (HUMAlog) HIGH Coverage SC SCH ×4 (08:45→21:49)
[2018-09-01] MEDS: Potassium Chloride 10 mEq ER Tab PO SCH ×2 (09:02→18:01)
[2018-09-01] MEDS: MethylPREDNISolone 40 mg Vial IV SCH ×2 (09:03→22:11)
--- NOTE | 2018-09-01 15:10 | PN ---
DATE: 09/01/2018 SUBJECTIVE: The patient is 78 years old, seen and examined, less cough and congestion, still coughing a lot, short of breath when walking. No chest pain. PHYSICAL EXAMINATION: VITAL SIGNS: The patient is afebrile, pulse 73, respirations 18, blood pressure 149/70. LUNGS: Bilateral soft crackle, diffuse, more so in the upper lung posteriorly. HEART: S1 and S2 audible. ABDOMEN: Soft, obese, nontender. No rebound. No guarding. NEUROLOGICAL: The patient is awake, alert, oriented, communicative. LABORATORY DATA: Sodium 134, potassium 4.8, chloride 96, CO2 of 29, BUN 46, creatinine 1.4, blood sugar of 196. Blood culture and urine cultures are negative. ASSESSMENT: 1. Chronic obstructive pulmonary disease exacerbation. 2. Congestive heart failure. 3. Multilobar pneumonia. 4. Morbid obesity. 5. Right lower lobe and right middle lobe pneumonia. 6. Ino-xxczeky-udtrxqojs diabetes. PLAN: We will continue the patient on glimepiride, carvedilol. He is on nebulizer treatment. He is on Lasix. He is getting Levaquin. Continue him on prednisone. Request for TCU evaluation; if accepted, he can be transferred to TCU. Joselito Petty MD
[2018-09-01] MEDS: levoFLOXacin 500 mg in D5W 500 MG/100 ML BAG IVPB SCH (22:12)
[2018-09-02] MEDS: Albuterol-Ipratrop 3 mg / 0.5 (3 ml) UD IH SCH ×3 (03:43→13:24)
[2018-09-02] MEDS: Pantoprazole 40 mg EC Tab PO SCH (05:29)
--- NOTE | 2018-09-02 07:29 | CP.PCM.PN ---
Subjective - Date & Time of Evaluation Date of Evaluation: 09/02/18 Time of Evaluation: 07:00 - Subjective Subjective: Stable on 3R. He feels better. No CP or SOB. The cough is much better. V/S noted. PE: Lungs: rhonchi Cor.: S1S2 Abd.: soft Ext.: mild edema Neuro.: alert Labs 09/01 noted: BS 's noted, Cr.= 1.4 BC X2 NG at [address] Chest noted. Objective - Vital Signs/Intake and Output Vital Signs (last 24 hours): Temp Pulse Resp BP Pulse Ox 97.6 F 73 18 173/87 H 98 09/01/18 16:56 09/01/18 18:05 09/01/18 16:56 09/01/18 18:05 09/01/18 16:56 - Medications Medications: Current Medications Acetaminophen (Tylenol 325mg Tab) 650 mg PO Q6H PRN PRN Reason: Fever >100.4 F Albuterol/Ipratropium (Duoneb 3 Mg/0.5 Mg (3 Ml) Ud) 3 ml IH Q2H PRN PRN Reason: Shortness of Breath Albuterol/Ipratropium (Duoneb 3 Mg/0.5 Mg (3 Ml) Ud) 3 ml IH [id number] [facility] Last Admin: 09/02/18 03:43 Dose: 3 ml Amlodipine Besylate (Norvasc) 10 mg PO DAILY [facility] Last Admin: 09/01/18 09:02 Dose: 10 mg Aspirin (Ecotrin) 81 mg PO DAILY [facility] Last Admin: 09/01/18 09:01 Dose: 81 mg Bethanechol Chloride (Urecholine) 25 mg PO BID [facility] Last Admin: 09/01/18 18:01 Dose: 25 mg Carvedilol (Coreg) 12.5 mg PO BID [facility] Last Admin: 09/01/18 18:05 Dose: 12.5 mg Finasteride (Proscar) 5 mg PO DAILY [facility] Last Admin: 09/01/18 09:02 Dose: 5 mg Furosemide (Lasix) 40 mg PO DAILY [facility] Last Admin: 09/01/18 09:02 Dose: 40 mg Glimepiride (Amaryl) 4 mg PO BID [facility] Last Admin: 09/01/18 18:01 Dose: 4 mg Levofloxacin/Dextrose (Levaquin 500mg) 500 mg in 100 mls @ 100 mls/hr IVPB HS [facility]; Protocol Last Admin: 09/01/18 22:12 Dose: 100 mls/hr Insulin Human Lispro (Humalog High) 0 units SC ACHS [facility]; Protocol Last Admin: 09/01/18 21:49 Dose: Not Given Methylprednisolone (Solu-Medrol) 30 mg IV Q12 [facility] Last Admin: 09/01/18 22:11 Dose: 30 mg Ondansetron HCl (Zofran Inj) 4 mg IVP Q6H PRN PRN Reason: Nausea/Vomiting Pantoprazole Sodium (Protonix Ec Tab) 40 mg PO 0630 [facility] Last Admin: 09/02/18 05:29 Dose: 40 mg Potassium Chloride (Klor-Con 10) 10 meq PO BID [facility] Last Admin: 09/01/18 18:01 Dose: 10 meq Repaglinide (Prandin) 2 mg PO WM [facility] Last Admin: 09/01/18 18:01 Dose: 2 mg Tamsulosin HCl (Flomax) 0.4 mg PO BID [facility] Last Admin: 09/01/18 18:01 Dose: 0.4 mg - Labs Labs: 08/29/18 06:30 09/01/18 05:30 Assessment and Plan - Assessment and Plan (Free Text) Assessment: Dyspnea, Cough COPD with decompensation, R/O pneumonia, R/O CHF MARILU PAF HBP HLD CKD BPH Skin cancers: basal cell, melanoma Former Smoker Echo 11/17: Nl LV fx., Mild and AI, Mod. TR Plan: Pulm Tx. AB, as per Dr. Petty. OOB/PT/TCU Eval. CPAP at night
[2018-09-02] MEDS: Insulin Lispro (HUMAlog) HIGH Coverage SC SCH ×2 (07:54→12:54)
[2018-09-02 08:37] VITALS: BP 179/89; PULSE 76; RESP 19; TEMP 97.7; O2SAT 95
[2018-09-02] MEDS: Potassium Chloride 10 mEq ER Tab PO SCH (10:45)
[2018-09-02] MEDS: MethylPREDNISolone 40 mg Vial IV SCH (10:45)
[2018-09-02] MEDS ORDERED: guaiFENesin-DM 600-30 mg ER Tab PO SCH (11:00)
--- NOTE | 2018-09-03 06:50 | DS ---
HISTORY OF PRESENT ILLNESS: The patient is a 78-year-old who came in to emergency room because of increasing cough, congestion, chest discomfort. The patient was found to have COPD exacerbation and workup showed that he has bilobar pneumonia, also mild CHF. So, the patient was given diuretic, IV antibiotic, steroid. The patient is known diabetic, so he has been having high blood sugar because of steroid. It was also monitored and adjusted. The patient is still having cough, congestion, wheezing, and need some physical therapy. PHYSICAL EXAMINATION: GENERAL: The patient is awake, alert, oriented, able to communicate. VITAL SIGNS: He is afebrile, pulse 76, respiration 19, blood pressure 179/89. LUNGS: Bilateral fair airflow. Has diffuse bilateral soft crackle and rhonchi. HEART: S1, S2 audible. ABDOMEN: Soft, obese, nontender. No rebound, no guarding. NEUROLOGIC: The patient is awake, alert, oriented, communicative. EXTREMITIES: Moves all extremities. Bilateral legs, +1 edema. LABORATORY DATA: Blood sugar is 209. ASSESSMENT: 1. Right middle and lower lobe pneumonia. 2. Hypertension. 3. Congestive heart failure. 4. Morbid obesity. 5. Lvo-uizwyrd-nrzpckywh diabetes. 6. History of melanoma resection. PLAN: We will continue the patient on nebulizer treatment. Continue on steroid. Continue to monitor blood sugar. He is on 30 mg of Solu-Medrol, we will slowly taper it down and he will be transferred to TCU today later. Joselito Petty MD
== END 2018-09-02 14:18 | DRG 190 ==
LOC: ED 11:46 → ERH 13:38 → 2RNO 20:25 → 3RSO 09-01 14:07
PROVIDERS: ADMIT Internal Medicine; ATTEND Internal Medicine
PROC: 5A09457 Assistance with Respiratory Ventilation, 24-96 Consecutive Hours, Continuous Positive Airway Pressure (ICD-10-PCS; principal; 2018-08-29)
PROC: 3E0F7GC Introduction of Other Therapeutic Substance into Respiratory Tract, Via Natural or Artificial Opening (ICD-10-PCS; 2018-08-29)
DX: J44.1 Chronic obstructive pulmonary disease with (acute) exacerbation (principal); J18.9 Pneumonia, unspecified organism; E87.1 Hypo-osmolality and hyponatremia; I13.0 Hypertensive heart and chronic kidney disease with heart failure and stage 1 through stage 4 chronic kidney disease, or unspecified chronic kidney disease; I48.0 Paroxysmal atrial fibrillation; I50.9 Heart failure, unspecified; E66.01 Morbid (severe) obesity due to excess calories; Z68.34 Body mass index [BMI] 34.0-34.9, adult; N18.9 Chronic kidney disease, unspecified; N40.0 Benign prostatic hyperplasia without lower urinary tract symptoms; J44.0 Chronic obstructive pulmonary disease with (acute) lower respiratory infection; E11.65 Type 2 diabetes mellitus with hyperglycemia; T38.0X5A Adverse effect of glucocorticoids and synthetic analogues, initial encounter; E11.22 Type 2 diabetes mellitus with diabetic chronic kidney disease; M10.9 Gout, unspecified; G47.33 Obstructive sleep apnea (adult) (pediatric); E78.5 Hyperlipidemia, unspecified; I08.2 Rheumatic disorders of both aortic and tricuspid valves; Z79.01 Long term (current) use of anticoagulants; Z85.820 Personal history of malignant melanoma of skin; Z79.84 Long term (current) use of oral hypoglycemic drugs; Z87.891 Personal history of nicotine dependence

== ENCOUNTER 2018-09-02 14:29 | Inpatient (IN) | payer OTHER ==
[2018-09-02 14:57] VITALS: BMI 35.7
[2018-09-02] MEDS ORDERED: Albuterol-Ipratrop 3 mg / 0.5 (3 ml) UD IH PRN (15:49)
[2018-09-02] MEDS: Insulin Lispro (HUMAlog) HIGH Coverage SC SCH ×2 (17:58→22:15)
[2018-09-02] MEDS: Potassium Chloride 10 mEq ER Tab PO SCH (18:00)
[2018-09-02] MEDS: guaiFENesin-DM 600-30 mg ER Tab PO SCH (18:01)
[2018-09-02] MEDS: Albuterol-Ipratrop 3 mg / 0.5 (3 ml) UD IH SCH (20:43)
[2018-09-02] MEDS: levoFLOXacin 250 mg in D5W 250 MG/50 ML BAG IVPB SCH (22:20)
[2018-09-02] MEDS: MethylPREDNISolone 40 mg Vial IV SCH (22:20)
[2018-09-03] MEDS: Albuterol-Ipratrop 3 mg / 0.5 (3 ml) UD IH SCH ×4 (02:34→19:33)
[2018-09-03] MEDS: Pantoprazole 40 mg EC Tab PO SCH (05:35)
[2018-09-03] MEDS: Insulin Lispro (HUMAlog) HIGH Coverage SC SCH ×4 (07:26→21:48)
[2018-09-03] MEDS: Potassium Chloride 10 mEq ER Tab PO SCH ×2 (08:00→17:24)
[2018-09-03] MEDS: guaiFENesin-DM 600-30 mg ER Tab PO SCH ×2 (10:04→17:24)
[2018-09-03] MEDS: MethylPREDNISolone 40 mg Vial IV SCH (10:06)
--- NOTE | 2018-09-03 19:50 | HP ---
HISTORY OF PRESENT ILLNESS: The patient is 78 years old who came and developed cough, congestion, wheezing. He was found to be having COPD exacerbation and congestive heart failure, was evaluated by Dr. Hart, was given IV diuretic, nebulizer treatment. Started to improve. Need physical therapy, transferred to TCU for further close monitoring and physical therapy. PAST MEDICAL HISTORY: Significant for; 1. Morbid obesity. 2. Hypertension. 3. Hyperlipidemia. 4. COPD. 5. History of heavy smoking in the past. 6. History of melanoma resection. ALLERGIES: HE IS ALLERGIC TO ATORVASTATIN, PENICILLIN, PROCAINE, AND PROPOXYPHENE. MEDICATIONS: As per MAR. SOCIAL HISTORY: Heavy smoker in the past. He is , lives with his . PHYSICAL EXAMINATION: GENERAL: He is awake and alert, able to communicative. VITAL SIGNS: He is afebrile, pulse 73, respiration 20, blood pressure 157/79. LUNGS: Bilateral expiratory rhonchi. HEART: S1, S2 audible. ABDOMEN: Soft, obese, and nontender. No rebound, no guarding. NEUROLOGICAL: He is awake, alert, oriented, and communicative. Ambulates with physical therapist. ASSESSMENT AND PLAN: We will continue on nebulizer treatment. Switch his IV Solu-Medrol to p.o. prednisone. Monitor blood sugar. We will follow the patient in a.m. Joselito Petty MD
[2018-09-03] MEDS: levoFLOXacin 250 mg in D5W 250 MG/50 ML BAG IVPB SCH (21:16)
[2018-09-04] MEDS: Albuterol-Ipratrop 3 mg / 0.5 (3 ml) UD IH SCH ×3 (01:59→13:02)
[2018-09-04] MEDS: Pantoprazole 40 mg EC Tab PO SCH (05:17)
[2018-09-04] MEDS: Insulin Lispro (HUMAlog) HIGH Coverage SC SCH ×4 (06:43→22:15)
[2018-09-04] MEDS: Potassium Chloride 10 mEq ER Tab PO SCH ×2 (08:16→17:24)
[2018-09-04] MEDS: guaiFENesin-DM 600-30 mg ER Tab PO SCH ×2 (10:33→17:25)
[2018-09-04] MEDS ORDERED: levoFLOXacin 500 MG TAB PO SCH (12:45)
--- NOTE | 2018-09-04 19:02 | PN ---
DATE: 09/04/2018 SUBJECTIVE: The patient is 78 years old, seen and examined, sitting in chair, seems to be comfortable, still has cough and congestion, cough is productive, shortness of breath on walking. PHYSICAL EXAMINATION: VITAL SIGNS: He is afebrile, pulse 84, respirations 20, blood pressure 192/98. LUNGS: Bilateral soft crackle. HEART: S1 and S2 audible. ABDOMEN: Soft, obese, nontender. No rebound. No guarding. NEUROLOGICAL: The patient is awake, alert, oriented, communicative, ambulatory. LABORATORY DATA: Blood sugar is 77. ASSESSMENT: 1. Chronic obstructive pulmonary disease exacerbation. 2. Asthmatic bronchitis. 3. Congestive heart failure. 4. Morbid obesity. 5. Det-tkkfwbg-dltfdhrlw diabetes. 6. Uncontrolled hypertension. PLAN: I will adjust medication to improve his blood pressure better. Continue nebulizer treatment, taper down steroid, encourage physical therapy. We will follow up the patient in a.m. Joselito Petty MD
[2018-09-05] MEDS: Albuterol-Ipratrop 3 mg / 0.5 (3 ml) UD IH SCH ×4 (01:41→20:41)
[2018-09-05] MEDS: Pantoprazole 40 mg EC Tab PO SCH (05:41)
[2018-09-05] MEDS: Insulin Lispro (HUMAlog) HIGH Coverage SC SCH ×4 (06:38→23:04)
[2018-09-05 07:50] LABS: ALB/GLOB RATIO 1.1 (1.1-1.8); ALT/SGPT 21 U/L (7-56); AST/SGOT 15 U/L (17-59); BLOOD UREA NITROGEN 45 mg/dL (7-21); CALCIUM 8.3 mg/dL (8.4-10.5); GFR NON-AFRICAN AMERICAN 54
[2018-09-05] MEDS: Potassium Chloride 10 mEq ER Tab PO SCH ×2 (07:50→17:43)
[2018-09-05] MEDS: guaiFENesin-DM 600-30 mg ER Tab PO SCH ×2 (10:22→17:45)
--- NOTE | 2018-09-05 16:07 | PN ---
DATE: 09/05/2018 SUBJECTIVE: The patient is 78 years old, seen and examined, sitting in chair, seems to be comfortable, still has cough and congestion. Blood pressure seems to be fluctuating. Denies any nausea or vomiting. PHYSICAL EXAMINATION VITAL SIGNS: He is afebrile, pulse 82, respirations 18, blood pressure 167/82. LUNGS: Bilateral soft crackle, diffuse. HEART: S1 and S2 audible. ABDOMEN: Soft, nontender. No rebound. No guarding. NEUROLOGICAL: The patient is able to communicate, ambulatory. LABORATORY EXAM: , potassium of 4.7, chloride 96, CO2 of 29. BUN 45, creatinine 1.3. Blood sugar of 183. ASSESSMENT: 1. Chronic obstructive pulmonary disease exacerbation. 2. Hypertension. 3. Qxr-mfscjcq-mhvqcutwn diabetes. 4. Congestive heart failure. PLAN: Currently, the patient is on carvedilol 12.5 daily. We will increase it to twice a day, thus how he takes at home. He is on losartan 100 daily. We will continue that. He is on amlodipine 10 mg daily, we will also continue that. Cut down his steroid to daily. Encourage physical therapy. I will start clonidine, and monitor blood pressure and blood sugar closely. Joselito Petty MD
[2018-09-05] MEDS: levoFLOXacin 500 MG TAB PO SCH (21:55)
[2018-09-06] MEDS: Albuterol-Ipratrop 3 mg / 0.5 (3 ml) UD IH SCH ×4 (02:13→20:44)
[2018-09-06] MEDS: Pantoprazole 40 mg EC Tab PO SCH (05:40)
[2018-09-06] MEDS: Insulin Lispro (HUMAlog) HIGH Coverage SC SCH ×4 (06:43→21:21)
[2018-09-06] MEDS: Potassium Chloride 10 mEq ER Tab PO SCH ×2 (08:17→17:13)
[2018-09-06] MEDS: guaiFENesin-DM 600-30 mg ER Tab PO SCH ×4 (09:35→17:14)
--- NOTE | 2018-09-06 16:03 | PN ---
DATE: 09/06/2018 SUBJECTIVE: The patient is 78 years old, seen and examined, still has cough, congestion and wheezing, gets short of breath on walking, receiving physical therapy with some improvement. PHYSICAL EXAMINATION VITAL SIGNS: He is afebrile, pulse 83, respirations 18, blood pressure 154/86. LUNGS: Bilateral fair airflow. Few soft crackles, scattered through all lung north, more so in the upper lung field. HEART: S1 and S2 audible. ABDOMEN: Soft, nontender. No rebound. No guarding. NEUROLOGICAL: He is awake, alert, oriented, communicative. LABORATORY DATA: Blood sugar is 127. ASSESSMENT: 1. Chronic obstructive pulmonary disease exacerbation. 2. Asthmatic bronchitis. 3. Aby-socarkz-kqbhohtxv diabetes. 4. Morbid obesity. 5. Obstructive sleep apnea. PLAN: Currently, the patient is on glimepiride. We will continue on clonidine. He is on Coreg twice a day, I will continue that along with losartan and he is getting Tensilon and Lasix 40 daily. I will continue on Levaquin. Continue physical therapy. We will follow up the patient in the a.m. Joselito Petty MD
[2018-09-06] MEDS: levoFLOXacin 500 MG TAB PO SCH (21:22)
[2018-09-07] MEDS: Albuterol-Ipratrop 3 mg / 0.5 (3 ml) UD IH SCH ×4 (01:50→20:24)
[2018-09-07] MEDS: Pantoprazole 40 mg EC Tab PO SCH (06:17)
[2018-09-07] MEDS: Insulin Lispro (HUMAlog) HIGH Coverage SC SCH ×4 (06:31→21:47)
[2018-09-07] MEDS: Potassium Chloride 10 mEq ER Tab PO SCH ×2 (07:56→17:30)
[2018-09-07] MEDS: guaiFENesin-DM 600-30 mg ER Tab PO SCH ×3 (10:09→17:30)
[2018-09-07] MEDS: levoFLOXacin 500 MG TAB PO SCH (21:47)
[2018-09-08] MEDS: Albuterol-Ipratrop 3 mg / 0.5 (3 ml) UD IH SCH ×4 (01:43→19:48)
[2018-09-08] MEDS: Pantoprazole 40 mg EC Tab PO SCH (06:09)
[2018-09-08] MEDS: Insulin Lispro (HUMAlog) HIGH Coverage SC SCH ×3 (06:53→17:06)
[2018-09-08] MEDS: Potassium Chloride 10 mEq ER Tab PO SCH ×2 (07:52→17:07)
[2018-09-08] MEDS: guaiFENesin-DM 600-30 mg ER Tab PO SCH ×3 (10:22→17:07)
--- NOTE | 2018-09-08 16:46 | PN ---
DATE: 09/08/2018 SUBJECTIVE: Patient is 78 years old, seen and examined, seen in gym, doing treadmill exercises, gets short of breath when he walks small distance, but does not desaturate. PHYSICAL EXAMINATION: VITAL SIGNS: Patient is afebrile, pulse 75, respiration 20, blood pressure 140/70. LUNGS: Bilateral soft expiratory rhonchi. HEART: S1 and S2 audible. ABDOMEN: Soft, obese, nontender. No rebound. No guarding. NEUROLOGICAL: The patient is awake, alert, oriented, communicative. LABORATORY EXAM: Blood sugar is 182. ASSESSMENT: 1. Chronic obstructive pulmonary disease exacerbation. 2. Congestive heart failure, jkfdz-pd-zorfaca systolic, seems to be resolving. 3. Morbid obesity. 4. History of smoking. 5. Hypertension. 6. Hyperlipidemia. PLAN: Continue patient on his usual medication, and write hydralazine 25 twice a day, continue on carvedilol. He is on losartan, Norvasc and continue nebulizer treatment. Monitor blood sugar, continue on Lasix. I will add chest PT and we will start to taper prednisone from tomorrow. Monitor blood sugar. Follow up patient in a.m. Joselito Petty MD
[2018-09-08 17:10] VITALS: RESP 20
[2018-09-08] MEDS: levoFLOXacin 500 MG TAB PO SCH (22:12)
[2018-09-09] MEDS: Insulin Lispro (HUMAlog) HIGH Coverage SC SCH ×5 (01:08→21:36)
[2018-09-09] MEDS: Albuterol-Ipratrop 3 mg / 0.5 (3 ml) UD IH SCH ×4 (02:20→21:07)
[2018-09-09] MEDS: Pantoprazole 40 mg EC Tab PO SCH (05:49)
[2018-09-09] MEDS: Potassium Chloride 10 mEq ER Tab PO SCH ×2 (07:52→18:31)
[2018-09-09] MEDS: guaiFENesin-DM 600-30 mg ER Tab PO SCH ×3 (10:32→18:31)
[2018-09-09] MEDS: levoFLOXacin 500 MG TAB PO SCH (21:05)
--- NOTE | 2018-09-09 23:22 | PN ---
DATE: 09/09/2018 SUBJECTIVE: The patient is a 78-year-old, seen and examined, sitting in chair, seems to be comfortable. Still has cough and congestion, but better than before. PHYSICAL EXAMINATION VITAL SIGNS: He is afebrile, pulse 77, respiration 20, blood pressure 134/68. LUNGS: Bilateral diffusely decreased breath sound. Soft crackle in the upper lung region posteriorly, much better than before. HEART: S1, S2 audible. ABDOMEN: Soft, obese, nontender. No rebound, no guarding. NEUROLOGIC: He is awake, alert, oriented, communicative. LABORATORY DATA: Blood sugar is 179. ASSESSMENT: 1. Chronic obstructive pulmonary disease exacerbation. 2. Multilobar pneumonia. 3. Hyperlipidemia. 4. Morbid obesity. 5. Mild congestive heart failure, acute on chronic, systolic. 6. Uyp-jbzzirx-nvprvlibj diabetes. PLAN: We will continue the patient on glimepiride. He is on hydralazine. We will continue carvedilol, losartan. He is getting nebulizer treatment. He is on 500 mg of Levaquin. We will continue that and possible discharge in a.m. Joselito Petty MD
[2018-09-10] MEDS: Albuterol-Ipratrop 3 mg / 0.5 (3 ml) UD IH SCH ×3 (02:10→13:24)
[2018-09-10] MEDS: Pantoprazole 40 mg EC Tab PO SCH (06:23)
[2018-09-10] MEDS: Insulin Lispro (HUMAlog) HIGH Coverage SC SCH ×3 (06:29→17:00)
[2018-09-10] MEDS: Potassium Chloride 10 mEq ER Tab PO SCH ×2 (08:08→17:47)
[2018-09-10] MEDS: guaiFENesin-DM 600-30 mg ER Tab PO SCH ×4 (09:49→17:47)
[2018-09-10 17:08] VITALS: BP 160/83; PULSE 85; TEMP 97.4; O2SAT 98
--- NOTE | 2018-09-11 15:03 | DS ---
HISTORY OF PRESENT ILLNESS: The patient is 78 years old who was initially admitted with cough, congestion, shortness of breath, was having difficulty breathing, was on CPAP, started on diuretics, IV steroid. Blood sugar has been fluctuating because of being on steroid and did well. Had CT scan done that shows bilobar pneumonia, has been on antibiotics, seems to be getting better, ambulatory. PHYSICAL EXAMINATION: GENERAL: Today, he is awake, alert, oriented, and communicative. VITAL SIGNS: He is afebrile, pulse 75, respirations 16, and blood pressure 154/70. LUNGS: Bilateral good airflow. No rhonchi or crackle. HEART: S1, S2 audible. ABDOMEN: Soft, obese, and nontender. No rebound. No guarding. NEUROLOGICAL: Patient is awake, alert, oriented, and communicative. LABORATORY EXAM: Blood sugar is 300. ASSESSMENT: 1. Multilobar pneumonia. 2. Hypertension. 3. Congestive heart failure, mild, acute on chronic systolic. 4. Scd-hddppau-ufyxmgnku diabetes. 5. Morbid obesity. PLAN: Patient is being discharged home on his usual medication. He will resume his medications including glimepiride, carvedilol, losartan. We will arrange for nebulizer machine. He was given a prescription of prednisone 10 mg daily for 5 more days. He does not need any more antibiotics. He will go back on his insulin regimen. He takes nisoldipine and carvedilol at home. He will follow with Dr. Jose as outpatient. Joselito Petty MD
== END 2018-09-10 19:10 | disposition home or self-care (01) | DRG 190 ==
LOC: TRCU 14:29
PROVIDERS: ADMIT Internal Medicine; ATTEND Internal Medicine
PROC: 3E0F7GC Introduction of Other Therapeutic Substance into Respiratory Tract, Via Natural or Artificial Opening (ICD-10-PCS; 2018-09-02)
PROC: F07Z9FZ Gait Training/Functional Ambulation Treatment using Assistive, Adaptive, Supportive or Protective Equipment (ICD-10-PCS; principal; 2018-09-03)
PROC: F08Z4FZ Home Management Treatment using Assistive, Adaptive, Supportive or Protective Equipment (ICD-10-PCS; 2018-09-03)
DX: J44.1 Chronic obstructive pulmonary disease with (acute) exacerbation (principal); J18.9 Pneumonia, unspecified organism; I50.23 Acute on chronic systolic (congestive) heart failure; J44.0 Chronic obstructive pulmonary disease with (acute) lower respiratory infection; I11.0 Hypertensive heart disease with heart failure; E11.9 Type 2 diabetes mellitus without complications; E66.01 Morbid (severe) obesity due to excess calories; E78.5 Hyperlipidemia, unspecified; G47.33 Obstructive sleep apnea (adult) (pediatric); Z68.35 Body mass index [BMI] 35.0-35.9, adult; Z85.820 Personal history of malignant melanoma of skin; Z87.891 Personal history of nicotine dependence